=== PATIENT | male | born 1965 | race Hispanic/Latino ===

== ENCOUNTER 2017-08-29 01:29 | Inpatient (IN) | payer MEDICAID, OTHER ==
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
[2017-08-29] MEDS ORDERED: Morphine 4 MG/ML VIAL ONE (01:43)
[2017-08-29] MEDS ORDERED: Lactated Ringer's 1,000 ML IV ONE ×3 (01:53→21:09)
[2017-08-29] MEDS ORDERED: Lactated Ringer's 1,000 ML ONE (02:02)
[2017-08-29 02:07] LABS: BASO # 0.1 K/uL (0.0-0.2); BASO % 1.9 % (0.0-2.0); EOS # 0.1 K/uL (0.0-0.7); EOS % 1.5 % (0.0-4.0); HEMATOCRIT 42.4 % (35.0-51.0); LYMPH # 2.8 K/uL (1.0-4.3); LYMPH % 41.5 % (20.0-40.0); MEAN CELL VOLUME 85.9 fL (80.0-94.0); MEAN CORPUSCULAR HEMOGLOBIN 28.4 pg (27.0-31.0); MEAN CORPUSCULAR HGB CONC 33.1 g/dL (33.0-37.0); MEAN PLATELET VOLUME 9.4 fL (7.2-11.7); MONO # 0.4 K/uL (0.0-0.8); MONO % 6.3 % (0.0-10.0); RED CELL DISTRIBUTION WIDTH 13.4 % (11.5-14.5); WHITE BLOOD COUNT 6.7 K/uL (4.8-10.8)
[2017-08-29] MEDS ORDERED: ceFAZolin 1 gm FROZEN Premix 1 GM/50 ML ML IVPB ONE (02:35)
[2017-08-29] MEDS ORDERED: ceFAZolin IV 2 gm in Dextrose 2 GM/50 ML BAG IVPB STA (02:37)
[2017-08-29 02:41] LABS: BLOOD UREA NITROGEN 17 mg/dL (9-20); CARBON DIOXIDE 26 mmol/L (22-30); CHLORIDE 101 mmol/L (98-107); GFR AFRICAN-AMERICAN > 60; GLUCOSE,RANDOM 102 mg/dL (75-110); POTASSIUM 3.7 mmol/L (3.6-5.2); SODIUM 137 mmol/L (132-148)
[2017-08-29] MEDS ORDERED: Absorbable Gelatin Sponge Size 12-7 ONE (03:39)
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
[2017-08-29] MEDS: Vancomycin 1 gm/NS 200 ml 1 GM/200 ML BAG IVPB SCH ×2 (07:06→19:25)
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
[2017-08-29] MEDS ORDERED: ceFAZolin IV 2 gm in Dextrose 2 GM/50 ML BAG IVPB SCH ×2 (08:30→09:00)
--- NOTE | 2017-08-29 09:43 | RAD ---
PROCEDURE: Radiographs of the right tibia and fibula. HISTORY: fall COMPARISON: None available. TECHNIQUE: Frontal and lateral views obtained. FINDINGS: BONES: Comminuted tibial metaphyseal to epiphyseal fracture involving the plateau medial tibial plateau angulated inferiorly and medially. Comminuted fibular head fracture. Mottled pretibial soft tissue changes. Suprapatellar joint effusion JOINT SPACES: Unremarkable. OTHER FINDINGS: None. IMPRESSION: Multiple comminuted fractures -tibia fibula -tibial plateau intraarticular extension. Medial tibial plateau large fracture fragment has its articular surface diagonally angulated from a right lateral to a inferior medial orientation
[2017-08-29] MEDS: cefTRIAXone IV 1 gm in Dextros 50 ML IVPB SCH (09:44)
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
[2017-08-29] MEDS ORDERED: Bacitracin 150,000 UNIT in Sodium Chloride 0.9% Irrig 3,000 ML IR SCH (18:00)
[2017-08-29] MEDS ORDERED: Propofol 10 mg/ml Inj (20 ML) ONE (19:00)
[2017-08-29] MEDS ORDERED: Midazolam 2 MG/2 ML VIAL ONE (19:01)
[2017-08-29] MEDS ORDERED: ceFAZolin IV 2 gm in Dextrose 2 GM/50 ML BAG IVPB ONE (19:11)
[2017-08-29] MEDS ORDERED: Absorbable Gelatin Sponge Size 100 ONE (19:58)
[2017-08-29] MEDS ORDERED: Thrombin Topical 20,000 Intl Units Spray Kit TOP ONE (19:58)
[2017-08-29] MEDS ORDERED: Neostigmine Methylsulfate 3mg/3ml Syringe IV ONE (20:37)
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
[2017-08-29] MEDS ORDERED: Vancomycin 1 gm/NS 200 ml 200 ML IVPB SCH (21:00)
[2017-08-29] MEDS: HYDROmorphone 0.5 mg/0.5 ml ISec IVP PRN ×3 (21:23→21:58)
--- NOTE | 2017-08-30 07:28 | CP.PCM.PN ---
<Venessa Urena - Last Filed: 08/30/17 11:43> Subjective - Date & Time of Evaluation Date of Evaluation: 08/30/17 Time of Evaluation: 07:28 - Subjective Subjective: Medicine Progress Note- Dr. Milton Patient was seen and examined at bedside. Patient was in no acute distress. Patient is s/p I&D and application of external fixator of the right tibia, POD# 1. Patient reports he had pain in his right leg this morning, but pain medication helped. Patient has no other complaints. Patient denies having chest pain, abdominal pain, nausea, vomiting, fevers, headaches, and shortness of breath. Objective - Vital Signs/Intake and Output Vital Signs (last 24 hours): Temp Pulse Resp BP Pulse Ox 98.4 F 60 20 105/50 L 97 08/29/17 23:20 08/29/17 23:20 08/29/17 23:20 08/29/17 23:20 08/29/17 23:20 Intake and Output: 08/30/17 08/30/17 06:59 18:59 Intake Total 100 Balance 100 - Medications Medications: Current Medications Enoxaparin Sodium (Lovenox) 40 mg SC DAILY [facility] Hydromorphone HCl (Dilaudid) 1 mg IVP Q4H PRN PRN Reason: Pain, severe (8-10) Ceftriaxone Sodium (Rocephin Iv 1 Gm Duplex) 50 mls @ 100 mls/hr IVPB DAILY [facility] Last Admin: 08/29/17 09:44 Dose: 100 mls/hr Vancomycin HCl 1 gm/ Sodium (Chloride) 250 mls @ 166.6 mls/hr IVPB Q12H [facility] Last Admin: 08/30/17 06:31 Dose: 166.6 mls/hr Ondansetron HCl (Zofran Inj) 4 mg IVP Q6H PRN PRN Reason: Nausea/Vomiting Pantoprazole Sodium (Protonix Inj) 40 mg IVP DAILY [facility] Last Admin: 08/29/17 09:44 Dose: 40 mg - Labs Labs: 08/29/17 02:02 08/29/17 02:02 PT 11.2 SECONDS (9.7-12.2) 08/29/17 02:02 INR 1.0 08/29/17 02:02 APTT 33 SECONDS (21-34) 08/29/17 02:02 - Additional Findings Additional findings: - Constitutional Appears: No Acute Distress - Head Exam Head Exam: ATRAUMATIC, NORMAL INSPECTION - Eye Exam Eye Exam: EOMI, Normal appearance - ENT Exam ENT Exam: Mucous Membranes Moist - Respiratory Exam Respiratory Exam: Clear to Ausculation Bilateral, NORMAL BREATHING PATTERN. absent: Rales, Rhonchi, Wheezes, Respiratory Distress - Cardiovascular Exam Cardiovascular Exam: REGULAR RHYTHM, +S1, +S2 - GI/Abdominal Exam GI & Abdominal Exam: Soft, Normal Bowel Sounds. absent: Distended, Firm, Guarding, Tenderness - Extremities Exam Additional comments: Right LE: cast and external fixator present on right LE; clean, dry, intact; Patient able to move toes; sensation intact; - Neurological Exam Neurological Exam: Alert, Awake, Oriented x3 - Psychiatric Exam Psychiatric exam: Normal Affect, Normal Mood - Skin Skin Exam: Dry, Pallor, Warm Assessment and Plan (1) Fracture, tibia and fibula, proximal Status: Acute (2) Prophylactic measure Status: Acute - Assessment and Plan (Free Text) Plan: Assessment and Plan (1) Fracture, tibia and fibula, proximal Assessment & Plan: * Tibia/Fibula Xray: Multiple comminuted fractures -tibia fibula -tibial plateau intraarticular extension. Medial tibial plateau large fracture fragment has its articular surface diagonally angulated from a right lateral to a inferior medial orientation * Lower extremity CT: Comminuted fracture proximal tibia with extension to lateral tibial plateau, posterior interspinous region, focal depression anterior lateral portion of the plateau of up to 1.8 cm. Comminuted fracture proximal fibula. Moderate pneumo-hemarthrosis, soft tissue edema and emphysema. * Continue Ceftriaxone 1gm q24h * Continue Vancomycin 1gm q12h * Continue Tylenol and/or Dilaudid as needed for pain control * Continue Zofran 4mg IVP q6h prn * Orthopedics consulted, Dr. Troncoso, help appreciated * As per Orthopedics, patient should continue 7-10 days of antibiotics; ID consulted- Dr. Stephenson, help appreciated * Wound gram stain, fungal cx: pending * Patient will need second in-house operation- scheduled date pending. * Patient s/p I&D and application of external fixator on right tibia, POD#1. Status: Acute (2) Prophylactic measure Assessment & Plan: DVT: Lovenox 40mg SC daily GI: Protonix 40mg IVP daily Incentive Spirometer Vegan diet Status: Acute <KarinePeter H - Last Filed: 08/30/17 15:11> Objective - Vital Signs/Intake and Output Vital Signs (last 24 hours): Temp Pulse Resp BP Pulse Ox 98 F 62 20 126/71 98 08/30/17 08:26 08/30/17 08:26 08/30/17 08:26 08/30/17 08:26 08/30/17 08:26 Intake and Output: 08/30/17 08/30/17 06:59 18:59 Intake Total 100 Balance 100 - Medications Medications: Current Medications Acetaminophen (Tylenol 325mg Tab) 975 mg PO Q6 [facility] Last Admin: 08/30/17 12:27 Dose: 975 mg Cyclobenzaprine HCl (Flexeril) 5 mg PO Q24H [facility] Docusate Sodium (Colace) 100 mg PO BID [facility] Enoxaparin Sodium (Lovenox) 40 mg SC DAILY [facility] Last Admin: 08/30/17 09:23 Dose: 40 mg Hydromorphone HCl (Dilaudid) 1 mg IVP Q4H PRN PRN Reason: Pain, severe (8-10) Last Admin: 08/30/17 12:40 Dose: 1 mg Ceftriaxone Sodium (Rocephin Iv 1 Gm Duplex) 50 mls @ 100 mls/hr IVPB DAILY [facility] Last Admin: 08/30/17 09:23 Dose: 100 mls/hr Vancomycin HCl 1 gm/ Sodium (Chloride) 250 mls @ 166.6 mls/hr IVPB Q12H [facility] Last Admin: 08/30/17 06:31 Dose: 166.6 mls/hr Ondansetron HCl (Zofran Inj) 4 mg IVP Q6H PRN PRN Reason: Nausea/Vomiting Oxycodone HCl (Oxycodone Immediate Release Tab) 10 mg PO Q6 PRN PRN Reason: Pain, moderate (4-7) Pantoprazole Sodium (Protonix Inj) 40 mg IVP DAILY [facility] Last Admin: 08/30/17 09:24 Dose: 40 mg - Labs Labs: 08/30/17 08:51 08/30/17 08:51 PT 11.2 SECONDS (9.7-12.2) 08/29/17 02:02 INR 1.0 08/29/17 02:02 APTT 33 SECONDS (21-34) 08/29/17 02:02 Attending/Attestation - Attestation I have personally seen and examined this patient.: Yes I have fully participated in the care of the patient.: Yes I have reviewed all pertinent clinical information, including history, physical exam and plan: Yes Notes (Text): Medical attending: Patient was seen and examined by me, agrees the above note by medical assistant cardiology. The patient was not under any acute distress when we saw him. He did get some pain medication earlier and he reported that this did help significantly. Last night he had his first orthopedic intervention for his open fracture of the proximal and distal right tibia/fibula. He's currently on IV antibiotics for the next several days and from what I understand, the patient at some point will then be scheduled for an ORIF. Thank you very much, Sampson Milton
[2017-08-30] MEDS: HYDROmorphone 1 mg/ml ISec IVP PRN ×4 (08:38→21:47)
[2017-08-30 09:02] LABS: BASO # 0.1 K/uL (0.0-0.2); BASO % 0.4 % (0.0-2.0); EOS % 0.1 % (0.0-4.0); HEMATOCRIT 32.6 % (35.0-51.0); LYMPH # 1.1 K/uL (1.0-4.3); LYMPH % 8.8 % (20.0-40.0); MEAN CELL VOLUME 86.3 fL (80.0-94.0); MEAN CORPUSCULAR HEMOGLOBIN 28.2 pg (27.0-31.0); MEAN CORPUSCULAR HGB CONC 32.7 g/dL (33.0-37.0); MEAN PLATELET VOLUME 9.7 fL (7.2-11.7); MONO # 1.1 K/uL (0.0-0.8); MONO % 8.4 % (0.0-10.0); PLATELET COUNT 132 K/uL (130-400); RED CELL DISTRIBUTION WIDTH 13.5 % (11.5-14.5)
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
[2017-08-30 09:19] LABS: ALB/GLOB RATIO 1.5 (1.0-2.1); ALKALINE PHOSPHATASE 54 U/L (38-126); ALT/SGPT 39 U/L (21-72); AST/SGOT 34 U/L (17-59); BILIRUBIN,TOTAL 2.6 mg/dL (0.2-1.3); BLOOD UREA NITROGEN 14 mg/dL (9-20); CALCIUM 7.5 mg/dl (8.6-10.4); CARBON DIOXIDE 32 mmol/L (22-30); CHLORIDE 97 mmol/L (98-107); GFR AFRICAN-AMERICAN > 60; GLUCOSE,RANDOM 103 mg/dL (75-110); POTASSIUM 3.9 mmol/L (3.6-5.2); SODIUM 134 mmol/L (132-148); TOTAL PROTEIN 5.6 g/dL (6.3-8.3)
[2017-08-30 09:20] LABS: WHITE BLOOD COUNT 12.6 K/uL (4.8-10.8)
[2017-08-30] MEDS: cefTRIAXone IV 1 gm in Dextros 50 ML IVPB SCH (09:23)
[2017-08-30] MEDS: Enoxaparin 40 mg Syringe SC SCH (09:23)
--- NOTE | 2017-08-30 09:29 | RAD ---
PROCEDURE: Intraoperative fluoroscopy HISTORY: FX EX-FIX PLACEMENT COMPARISON: Not available TECHNIQUE: Intraoperative fluoroscopy was provided for external fixation about proximal tibial and fibular fracture. Total time of fluoroscopy was 19.7 seconds. FINDINGS: Multiple fluoroscopic spot films are submitted. Films are on file for review. IMPRESSION: Fluoroscopy provided.
[2017-08-30 09:54] LABS: NEUTROPHIL 79 % (50-75); REACTIVE LYMPHOCYTES 4 % (0-0); TOTAL CELLS COUNTED 100
[2017-08-30 09:55] LABS: LARGE PLATELETS PRESENT
--- NOTE | 2017-08-30 12:13 | CP.PCM.PN ---
Subjective - Date & Time of Evaluation Date of Evaluation: 08/30/17 Time of Evaluation: 12:09 - Subjective Subjective: Patient states he is still having a lot of pain in his knee. The injection helps but it is wearing off. He had severe pain during PT. Denies CP/SOB/ dizziness/numbness/tingling. Objective - Vital Signs/Intake and Output Vital Signs (last 24 hours): Temp Pulse Resp BP Pulse Ox 98 F 62 20 126/71 98 08/30/17 08:26 08/30/17 08:26 08/30/17 08:26 08/30/17 08:26 08/30/17 08:26 Intake and Output: 08/30/17 08/30/17 06:59 18:59 Intake Total 100 Balance 100 - Medications Medications: Current Medications Acetaminophen (Tylenol 325mg Tab) 975 mg PO Q6 [facility] Cyclobenzaprine HCl (Flexeril) 5 mg PO Q24H [facility] Docusate Sodium (Colace) 100 mg PO BID [facility] Enoxaparin Sodium (Lovenox) 40 mg SC DAILY [facility] Last Admin: 08/30/17 09:23 Dose: 40 mg Hydromorphone HCl (Dilaudid) 1 mg IVP Q4H PRN PRN Reason: Pain, severe (8-10) Last Admin: 08/30/17 08:38 Dose: 1 mg Ceftriaxone Sodium (Rocephin Iv 1 Gm Duplex) 50 mls @ 100 mls/hr IVPB DAILY [facility] Last Admin: 08/30/17 09:23 Dose: 100 mls/hr Vancomycin HCl 1 gm/ Sodium (Chloride) 250 mls @ 166.6 mls/hr IVPB Q12H [facility] Last Admin: 08/30/17 06:31 Dose: 166.6 mls/hr Ondansetron HCl (Zofran Inj) 4 mg IVP Q6H PRN PRN Reason: Nausea/Vomiting Oxycodone HCl (Oxycodone Immediate Release Tab) 10 mg PO Q6 PRN PRN Reason: Pain, moderate (4-7) Pantoprazole Sodium (Protonix Inj) 40 mg IVP DAILY [facility] Last Admin: 08/30/17 09:24 Dose: 40 mg - Labs Labs: 08/30/17 08:51 08/30/17 08:51 PT 11.2 SECONDS (9.7-12.2) 08/29/17 02:02 INR 1.0 08/29/17 02:02 APTT 33 SECONDS (21-34) 08/29/17 02:02 - Extremities Exam Additional comments: RLE: +ROM ankle/toes, sensation intact, compartments swollen but not tense, no pain with passive ROM toes, +DP/PT pulses, left calf soft NT neg homans Assessment and Plan (1) Type I or II open fracture of proximal end of right tibia and fibula Assessment & Plan: POD#1 s/p I&D and ex-fix application -pain medication adjusted -elevation/ice -per Dr. Troncoso, recommend ID consultation, suggest 7-10 days IV antibiotics or as per ID -will await swelling to improve and then schedule ORIF at that time -recommend inpatient at this time, wound checks, IV antibiotics -VTE proph -d/w Dr. Troncoso agrees with above Status: Acute
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
[2017-08-30] MEDS ORDERED: Vancomycin 1 GM in Dextrose 5% In Water 250 ML IVPB SCH (21:00)
[2017-08-31] MEDS: HYDROmorphone 1 mg/ml ISec IVP PRN ×3 (01:44→12:17)
[2017-08-31 07:00] LABS: BASO # 0.1 K/uL (0.0-0.2); BASO % 0.7 % (0.0-2.0); EOS % 0.3 % (0.0-4.0); HEMATOCRIT 30.7 % (35.0-51.0); LYMPH # 1.5 K/uL (1.0-4.3); LYMPH % 14.8 % (20.0-40.0); MEAN CELL VOLUME 85.2 fL (80.0-94.0); MEAN CORPUSCULAR HEMOGLOBIN 28.9 pg (27.0-31.0); MEAN CORPUSCULAR HGB CONC 33.9 g/dL (33.0-37.0); MONO # 1.1 K/uL (0.0-0.8); MONO % 10.5 % (0.0-10.0); RED CELL DISTRIBUTION WIDTH 13.3 % (11.5-14.5); WHITE BLOOD COUNT 10.1 K/uL (4.8-10.8)
--- NOTE | 2017-08-31 07:15 | CP.PCM.PN ---
Subjective - Date & Time of Evaluation Date of Evaluation: 08/31/17 Time of Evaluation: 07:12 - Subjective Subjective: Medicine Progress Note for Dr. Milton Patient was seen and examined at bedside in no acute distress. Patient reports having pain in his right leg earlier, but after requesting pain medications, it feels less painful. Patient reports he is gaining his appetite back. He states he is using the incentive spirometer regularly and using bands for strengthening. Patient denies having chest pain, shortness of breath, abdominal pain, nausea, vomiting, fevers, and headaches. Objective - Vital Signs/Intake and Output Vital Signs (last 24 hours): Temp Pulse Resp BP Pulse Ox 98.8 F 60 20 116/62 98 08/31/17 00:00 08/31/17 00:00 08/31/17 00:00 08/31/17 00:00 08/31/17 00:00 Intake and Output: 08/31/17 08/31/17 06:59 18:59 Intake Total 100 Balance 100 - Medications Medications: Current Medications Acetaminophen (Tylenol 325mg Tab) 975 mg PO Q6 [facility] Last Admin: 08/31/17 06:38 Dose: Not Given Cyclobenzaprine HCl (Flexeril) 5 mg PO Q24H [facility] Last Admin: 08/30/17 21:49 Dose: 5 mg Docusate Sodium (Colace) 100 mg PO BID [facility] Last Admin: 08/30/17 18:51 Dose: 100 mg Enoxaparin Sodium (Lovenox) 40 mg SC DAILY [facility] Last Admin: 08/30/17 09:23 Dose: 40 mg Hydromorphone HCl (Dilaudid) 1 mg IVP Q4H PRN PRN Reason: Pain, severe (8-10) Last Admin: 08/31/17 05:59 Dose: 1 mg Ceftriaxone Sodium (Rocephin Iv 1 Gm Duplex) 50 mls @ 100 mls/hr IVPB DAILY [facility] Last Admin: 08/30/17 09:23 Dose: 100 mls/hr Vancomycin HCl 1 gm/ Sodium (Chloride) 250 mls @ 166.6 mls/hr IVPB Q12H [facility] Last Admin: 08/31/17 06:42 Dose: 166.6 mls/hr Ondansetron HCl (Zofran Inj) 4 mg IVP Q6H PRN PRN Reason: Nausea/Vomiting Oxycodone HCl (Oxycodone Immediate Release Tab) 10 mg PO Q6 PRN PRN Reason: Pain, moderate (4-7) Pantoprazole Sodium (Protonix Inj) 40 mg IVP DAILY [facility] Last Admin: 08/30/17 09:24 Dose: 40 mg - Labs Labs: 08/31/17 06:49 08/30/17 08:51 PT 11.2 SECONDS (9.7-12.2) 08/29/17 02:02 INR 1.0 08/29/17 02:02 APTT 33 SECONDS (21-34) 08/29/17 02:02 - Additional Findings Additional findings: - Constitutional Appears: No Acute Distress - Head Exam Head Exam: ATRAUMATIC, NORMAL INSPECTION - Eye Exam Eye Exam: EOMI, Normal appearance - ENT Exam ENT Exam: Mucous Membranes Moist - Respiratory Exam Respiratory Exam: Clear to Ausculation Bilateral, NORMAL BREATHING PATTERN. absent: Rales, Rhonchi, Wheezes, Respiratory Distress - Cardiovascular Exam Cardiovascular Exam: REGULAR RHYTHM, +S1, +S2 - GI/Abdominal Exam GI & Abdominal Exam: Soft, Normal Bowel Sounds. absent: Distended, Firm, Guarding, Tenderness - Extremities Exam Additional comments: Right LE: cast and external fixator present on right LE; clean, dry, intact; Patient able to move toes; sensation intact; - Neurological Exam Neurological Exam: Alert, Awake, Oriented x3 - Psychiatric Exam Psychiatric exam: Normal Affect, Normal Mood - Skin Skin Exam: Dry, Pallor, Warm Assessment and Plan (1) Fracture, tibia and fibula, proximal Status: Acute (2) Prophylactic measure Status: Acute - Assessment and Plan (Free Text) Plan: (1) Fracture, tibia and fibula, proximal Assessment & Plan: * Tibia/Fibula Xray: Multiple comminuted fractures -tibia fibula -tibial plateau intraarticular extension. Medial tibial plateau large fracture fragment has its articular surface diagonally angulated from a right lateral to a inferior medial orientation * Lower extremity CT: Comminuted fracture proximal tibia with extension to lateral tibial plateau, posterior interspinous region, focal depression anterior lateral portion of the plateau of up to 1.8 cm. Comminuted fracture proximal fibula. Moderate pneumo-hemarthrosis, soft tissue edema and emphysema. * Continue Ceftriaxone 1gm q24h * Continue Vancomycin 1gm q12h * Continue Tylenol and/or Dilaudid as needed for pain control * Continue Zofran 4mg IVP q6h prn * Orthopedics consulted, Dr. Troncoso, help appreciated * As per Orthopedics, patient should continue 7-10 days of antibiotics; ID consulted- Dr. Stephenson, help appreciated * Wound gram stain, fungal cx: no growth * Patient will need second in-house operation- scheduled date pending. * ID consulted, Dr. Stephenson, help appreciated * Patient s/p I&D and application of external fixator on right tibia (on 08/29) , POD#2. Status: Acute (2) Prophylactic measure Assessment & Plan: DVT: Lovenox 40mg SC daily GI: Protonix 40mg IVP daily Incentive Spirometer OT Vegan diet Status: Acute
[2017-08-31 07:47] LABS: ALB/GLOB RATIO 1.4 (1.0-2.1); ALKALINE PHOSPHATASE 50 U/L (38-126); ALT/SGPT 33 U/L (21-72); AST/SGOT 34 U/L (17-59); BILIRUBIN,TOTAL 1.9 mg/dL (0.2-1.3); BLOOD UREA NITROGEN 11 mg/dL (9-20); CALCIUM 7.7 mg/dl (8.6-10.4); CARBON DIOXIDE 32 mmol/L (22-30); CHLORIDE 97 mmol/L (98-107); GFR AFRICAN-AMERICAN > 60; GLUCOSE,RANDOM 95 mg/dL (75-110); POTASSIUM 3.7 mmol/L (3.6-5.2); SODIUM 137 mmol/L (132-148); TOTAL PROTEIN 5.6 g/dL (6.3-8.3)
[2017-08-31 08:13] LABS: VITAMIN D 25 OH TOTAL 22.4 NG/ML (30.0-100.0)
[2017-08-31] MEDS: oxyCODONE 10 mg Immediate Release Tab PO PRN ×2 (08:54→15:04)
--- NOTE | 2017-08-31 09:13 | CP.PCM.PN ---
Subjective - Date & Time of Evaluation Date of Evaluation: 08/31/17 Time of Evaluation: 09:11 - Subjective Subjective: Patient states his pain is a little better today. He says the injection is wearing off and is requesting more medication now. Denies CP/SOB/dizziness. Objective - Vital Signs/Intake and Output Vital Signs (last 24 hours): Temp Pulse Resp BP Pulse Ox 98.3 F 58 L 20 117/65 98 08/31/17 08:00 08/31/17 08:00 08/31/17 08:00 08/31/17 08:00 08/31/17 08:00 Intake and Output: 08/31/17 08/31/17 06:59 18:59 Intake Total 100 200 Balance 100 200 - Medications Medications: Current Medications Acetaminophen (Tylenol 325mg Tab) 975 mg PO Q6 [facility] Last Admin: 08/31/17 06:38 Dose: Not Given Cyclobenzaprine HCl (Flexeril) 5 mg PO Q24H [facility] Last Admin: 08/30/17 21:49 Dose: 5 mg Docusate Sodium (Colace) 100 mg PO BID [facility] Last Admin: 08/30/17 18:51 Dose: 100 mg Enoxaparin Sodium (Lovenox) 40 mg SC DAILY [facility] Last Admin: 08/30/17 09:23 Dose: 40 mg Hydromorphone HCl (Dilaudid) 1 mg IVP Q4H PRN PRN Reason: Pain, severe (8-10) Last Admin: 08/31/17 05:59 Dose: 1 mg Ceftriaxone Sodium (Rocephin Iv 1 Gm Duplex) 50 mls @ 100 mls/hr IVPB DAILY [facility] Last Admin: 08/30/17 09:23 Dose: 100 mls/hr Vancomycin HCl 1 gm/ Sodium (Chloride) 250 mls @ 166.6 mls/hr IVPB Q12H [facility] Last Admin: 08/31/17 06:42 Dose: 166.6 mls/hr Ondansetron HCl (Zofran Inj) 4 mg IVP Q6H PRN PRN Reason: Nausea/Vomiting Oxycodone HCl (Oxycodone Immediate Release Tab) 10 mg PO Q6 PRN PRN Reason: Pain, moderate (4-7) Last Admin: 08/31/17 08:54 Dose: 10 mg Pantoprazole Sodium (Protonix Inj) 40 mg IVP DAILY [facility] Last Admin: 08/30/17 09:24 Dose: 40 mg - Labs Labs: 08/31/17 06:49 08/31/17 06:49 PT 11.2 SECONDS (9.7-12.2) 08/29/17 02:02 INR 1.0 08/29/17 02:02 APTT 33 SECONDS (21-34) 08/29/17 02:02 - Extremities Exam Additional comments: patient in NAD. Ice on right leg. +ROM ankle/toes wihtout pain, sensation intact , calves soft NT neg homans +DP/PT pulses, sensation intact. no increased drainage visible on dressing. Assessment and Plan (1) Type I or II open fracture of proximal end of right tibia and fibula Assessment & Plan: ID consultation appreciated, cont IV abx awaiting cultures cont IV abx, elevation, PT, VTE proph if patient has coverage, could be transferred to rehab for completion of abx and awaiting decrease in swelling prior to definitive surgery cont pain medication d/w Jensen ca, agrees with above Status: Acute (2) Open fracture of right tibial plateau Status: Acute
[2017-08-31] MEDS: Enoxaparin 40 mg Syringe SC SCH (10:47)
[2017-08-31] MEDS: cefTRIAXone IV 1 gm in Dextros 50 ML IVPB SCH (10:51)
[2017-08-31] MEDS: HYDROmorphone 0.5 mg/0.5 ml ISec IVP PRN ×2 (17:38→21:57)
--- NOTE | 2017-08-31 18:43 | CP.PCM.PN ---
Subjective - Date & Time of Evaluation Date of Evaluation: 08/31/17 Time of Evaluation: 09:00 - Subjective Subjective: afebrile IV antibiotics reordered c/o pain Objective - Vital Signs/Intake and Output Vital Signs (last 24 hours): Temp Pulse Resp BP Pulse Ox 98 F 70 20 118/57 L 98 08/31/17 15:57 08/31/17 15:57 08/31/17 15:57 08/31/17 15:57 08/31/17 15:57 Intake and Output: 08/31/17 08/31/17 06:59 18:59 Intake Total 100 200 Balance 100 200 - Medications Medications: Current Medications Acetaminophen (Tylenol 325mg Tab) 975 mg PO Q6 [facility] Last Admin: 08/31/17 13:49 Dose: Not Given Cyclobenzaprine HCl (Flexeril) 5 mg PO Q24H [facility] Last Admin: 08/30/17 21:49 Dose: 5 mg Docusate Sodium (Colace) 100 mg PO BID [facility] Last Admin: 08/31/17 10:44 Dose: 100 mg Enoxaparin Sodium (Lovenox) 40 mg SC DAILY [facility] Last Admin: 08/31/17 10:47 Dose: 40 mg Hydromorphone HCl (Dilaudid) 1 mg IVP Q4H PRN PRN Reason: Pain, severe (8-10) Last Admin: 08/31/17 17:38 Dose: 1 mg Ceftriaxone Sodium (Rocephin Iv 1 Gm Duplex) 50 mls @ 100 mls/hr IVPB DAILY [facility] Last Admin: 08/31/17 10:51 Dose: 100 mls/hr Vancomycin HCl 1 gm/ Sodium (Chloride) 250 mls @ 166.6 mls/hr IVPB Q12H [facility] Last Admin: 08/31/17 18:34 Dose: 166.6 mls/hr Ondansetron HCl (Zofran Inj) 4 mg IVP Q6H PRN PRN Reason: Nausea/Vomiting Oxycodone HCl (Oxycodone Immediate Release Tab) 10 mg PO Q6 PRN PRN Reason: Pain, moderate (4-7) Last Admin: 08/31/17 15:04 Dose: 10 mg Pantoprazole Sodium (Protonix Inj) 40 mg IVP DAILY [facility] Last Admin: 08/31/17 10:47 Dose: 40 mg - Labs Labs: 08/31/17 06:49 08/31/17 06:49 PT 11.2 SECONDS (9.7-12.2) 08/29/17 02:02 INR 1.0 08/29/17 02:02 APTT 33 SECONDS (21-34) 08/29/17 02:02 - Constitutional Appears: Non-toxic, Chronically Ill - Head Exam Head Exam: NORMOCEPHALIC - Eye Exam Eye Exam: PERRL - ENT Exam ENT Exam: Mucous Membranes Dry - Neck Exam Neck Exam: absent: Lymphadenopathy - Respiratory Exam Respiratory Exam: Decreased Breath Sounds - Cardiovascular Exam Cardiovascular Exam: REGULAR RHYTHM - GI/Abdominal Exam GI & Abdominal Exam: Distended, Soft - Rectal Exam Rectal Exam: Deferred - Exam Exam: NORMAL INSPECTION - Extremities Exam Extremities Exam: absent: Pedal Edema - Back Exam Back Exam: absent: CVA tenderness (L), CVA tenderness (R) Assessment and Plan (1) Fracture, tibia and fibula, proximal Status: Acute (2) Type I or II open fracture of proximal end of right tibia and fibula Status: Acute
[2017-09-01] MEDS: HYDROmorphone 0.5 mg/0.5 ml ISec IVP PRN ×2 (02:50→10:32)
[2017-09-01] MEDS ORDERED: Ergocalciferol 50,000 Intl Units Cap PO SCH (08:00)
[2017-09-01 08:15] LABS: BASO % 0.6 % (0.0-2.0); EOS % 0.4 % (0.0-4.0); LYMPH # 0.9 K/uL (1.0-4.3); LYMPH % 10.6 % (20.0-40.0); MEAN CELL VOLUME 84.8 fL (80.0-94.0); MEAN CORPUSCULAR HEMOGLOBIN 28.6 pg (27.0-31.0); MEAN CORPUSCULAR HGB CONC 33.7 g/dL (33.0-37.0); MEAN PLATELET VOLUME 9.9 fL (7.2-11.7); RED CELL DISTRIBUTION WIDTH 13.1 % (11.5-14.5); WHITE BLOOD COUNT 8.5 K/uL (4.8-10.8)
[2017-09-01 08:48] LABS: ALKALINE PHOSPHATASE 46 U/L (38-126); ALT/SGPT 32 U/L (21-72); AST/SGOT 28 U/L (17-59); BILIRUBIN,TOTAL 1.1 mg/dL (0.2-1.3); BLOOD UREA NITROGEN 9 mg/dL (9-20); CALCIUM 7.7 mg/dl (8.6-10.4); CARBON DIOXIDE 35 mmol/L (22-30); CHLORIDE 98 mmol/L (98-107); GFR AFRICAN-AMERICAN > 60; GLUCOSE,RANDOM 117 mg/dL (75-110); POTASSIUM 3.8 mmol/L (3.6-5.2); SODIUM 137 mmol/L (132-148); TOTAL PROTEIN 5.7 g/dL (6.3-8.3)
[2017-09-01 08:50] LABS: ALB/GLOB RATIO 1.2 (1.0-2.1)
--- NOTE | 2017-09-01 09:31 | CP.PCM.PN ---
<Venessa Urena - Last Filed: 09/01/17 11:10> Subjective - Date & Time of Evaluation Date of Evaluation: 09/01/17 Time of Evaluation: 09:31 - Subjective Subjective: Medicine Progress Note-Dr. Milton Patient was seen and examined at bedside in no acute distress. Patient reports having pain in his right leg, but the pain medications still help. Patient reports he is using the incentive spirometer regularly. He states he sometimes feels hot and cold, but not sure if hes having fevers. Patient denies having chest pain, shortness of breath, abdominal pain, nausea, vomiting, and headaches. Objective - Vital Signs/Intake and Output Vital Signs (last 24 hours): Temp Pulse Resp BP Pulse Ox 98.1 F 69 20 116/74 95 09/01/17 07:10 09/01/17 07:10 09/01/17 07:10 09/01/17 07:10 09/01/17 07:10 Intake and Output: 09/01/17 09/01/17 06:59 18:59 Intake Total 600 150 Output Total 900 1200 Balance -300 -1050 - Medications Medications: Current Medications Acetaminophen (Tylenol 325mg Tab) 975 mg PO Q6 [facility] Last Admin: 09/01/17 06:53 Dose: 975 mg Cyclobenzaprine HCl (Flexeril) 5 mg PO Q24H [facility] Last Admin: 08/31/17 21:57 Dose: 5 mg Docusate Sodium (Colace) 100 mg PO BID [facility] Last Admin: 08/31/17 18:45 Dose: 100 mg Enoxaparin Sodium (Lovenox) 40 mg SC DAILY [facility] Last Admin: 08/31/17 10:47 Dose: 40 mg Ergocalciferol (Drisdol 50,000 Intl Units Cap) 1 cap PO Q7D [facility] Last Admin: 09/01/17 08:41 Dose: 1 cap Hydromorphone HCl (Dilaudid) 1 mg IVP Q4H PRN PRN Reason: Pain, severe (8-10) Last Admin: 09/01/17 02:50 Dose: 1 mg Ceftriaxone Sodium (Rocephin Iv 1 Gm Duplex) 50 mls @ 100 mls/hr IVPB DAILY [facility] Last Admin: 08/31/17 10:51 Dose: 100 mls/hr Vancomycin HCl 1 gm/ Sodium (Chloride) 250 mls @ 166.6 mls/hr IVPB Q12H [facility] Last Admin: 09/01/17 06:52 Dose: 166.6 mls/hr Ondansetron HCl (Zofran Inj) 4 mg IVP Q6H PRN PRN Reason: Nausea/Vomiting Oxycodone HCl (Oxycodone Immediate Release Tab) 10 mg PO Q6 PRN PRN Reason: Pain, moderate (4-7) Last Admin: 08/31/17 15:04 Dose: 10 mg Pantoprazole Sodium (Protonix Inj) 40 mg IVP DAILY [facility] Last Admin: 08/31/17 10:47 Dose: 40 mg - Labs Labs: 09/01/17 08:01 09/01/17 08:01 PT 11.2 SECONDS (9.7-12.2) 08/29/17 02:02 INR 1.0 08/29/17 02:02 APTT 33 SECONDS (21-34) 08/29/17 02:02 - Additional Findings Additional findings: - Constitutional Appears: No Acute Distress - Head Exam Head Exam: ATRAUMATIC, NORMAL INSPECTION - Eye Exam Eye Exam: EOMI, Normal appearance - ENT Exam ENT Exam: Mucous Membranes Moist - Respiratory Exam Respiratory Exam: Clear to Ausculation Bilateral, NORMAL BREATHING PATTERN. absent: Rales, Rhonchi, Wheezes, Respiratory Distress - Cardiovascular Exam Cardiovascular Exam: REGULAR RHYTHM, +S1, +S2 - GI/Abdominal Exam GI & Abdominal Exam: Soft, Normal Bowel Sounds. absent: Distended, Firm, Guarding, Tenderness - Extremities Exam Additional comments: Right LE: cast and external fixator present on right LE; clean, dry, intact; Patient able to move toes; sensation intact; - Neurological Exam Neurological Exam: Alert, Awake, Oriented x3 - Psychiatric Exam Psychiatric exam: Normal Affect, Normal Mood - Skin Skin Exam: Dry, Pallor, Warm Assessment and Plan (1) Fracture, tibia and fibula, proximal Status: Acute (2) Prophylactic measure Status: Acute - Assessment and Plan (Free Text) Plan: (1) Fracture, tibia and fibula, proximal Assessment & Plan: * Tibia/Fibula Xray: Multiple comminuted fractures -tibia fibula -tibial plateau intraarticular extension. Medial tibial plateau large fracture fragment has its articular surface diagonally angulated from a right lateral to a inferior medial orientation * Lower extremity CT: Comminuted fracture proximal tibia with extension to lateral tibial plateau, posterior interspinous region, focal depression anterior lateral portion of the plateau of up to 1.8 cm. Comminuted fracture proximal fibula. Moderate pneumo-hemarthrosis, soft tissue edema and emphysema. * Continue Ceftriaxone 1gm q24h * Continue Vancomycin 1gm q12h * Continue Tylenol and/or Dilaudid as needed for pain control * Continue Zofran 4mg IVP q6h prn * Orthopedics consulted, Dr. Troncoso, help appreciated * As per Orthopedics, patient should continue 7-10 days of antibiotics; ID consulted- Dr. Stephenson, help appreciated * Wound gram stain, fungal cx: no growth * Patient will need second in-house operation- scheduled date pending. * ID consulted, Dr. Stephenson, help appreciated * Patient s/p I&D and application of external fixator on right tibia (on 08/29) , POD#3. * Continue IV antibiotics as per ID. * Patient does not have insurance, and therefore will not have placement in rehab. * Awaiting decrease in swelling to schedule next operation. Status: Acute (2) Prophylactic measure Assessment & Plan: DVT: Lovenox 40mg SC daily GI: Protonix 40mg IVP daily Incentive Spirometer OT Vegan diet Status: Acute <Sampson Milton H - Last Filed: 09/01/17 16:22> Objective - Vital Signs/Intake and Output Vital Signs (last 24 hours): Temp Pulse Resp BP Pulse Ox 98.1 F 69 20 116/74 95 09/01/17 07:10 09/01/17 07:10 09/01/17 07:10 09/01/17 07:10 09/01/17 07:10 Intake and Output: 09/01/17 09/01/17 06:59 18:59 Intake Total 600 480 Output Total 900 1200 Balance -300 -720 - Medications Medications: Current Medications Acetaminophen (Tylenol 325mg Tab) 975 mg PO Q6 [facility] Last Admin: 09/01/17 12:25 Dose: 975 mg Cyclobenzaprine HCl (Flexeril) 5 mg PO Q24H [facility] Last Admin: 08/31/17 21:57 Dose: 5 mg Docusate Sodium (Colace) 100 mg PO BID [facility] Last Admin: 09/01/17 10:00 Dose: 100 mg Enoxaparin Sodium (Lovenox) 40 mg SC DAILY [facility] Last Admin: 09/01/17 10:00 Dose: 40 mg Ergocalciferol (Drisdol 50,000 Intl Units Cap) 1 cap PO Q7D [facility] Last Admin: 09/01/17 08:41 Dose: 1 cap Hydromorphone HCl (Dilaudid) 1 mg IVP Q4H PRN PRN Reason: Pain, severe (8-10) Last Admin: 09/01/17 14:38 Dose: 1 mg Ceftriaxone Sodium (Rocephin Iv 1 Gm Duplex) 50 mls @ 100 mls/hr IVPB DAILY [facility] Last Admin: 09/01/17 10:00 Dose: 100 mls/hr Vancomycin HCl 1 gm/ Sodium (Chloride) 250 mls @ 166.6 mls/hr IVPB Q12H [facility] Last Admin: 09/01/17 06:52 Dose: 166.6 mls/hr Ondansetron HCl (Zofran Inj) 4 mg IVP Q6H PRN PRN Reason: Nausea/Vomiting Oxycodone HCl (Oxycodone Immediate Release Tab) 10 mg PO Q6 PRN PRN Reason: Pain, moderate (4-7) Last Admin: 08/31/17 15:04 Dose: 10 mg Pantoprazole Sodium (Protonix Inj) 40 mg IVP DAILY [facility] Last Admin: 09/01/17 09:59 Dose: 40 mg Saccharomyces Boulardii (Florastor) 250 mg PO DAILY [facility] Last Admin: 09/01/17 11:24 Dose: 250 mg - Labs Labs: 09/01/17 08:01 09/01/17 08:01 PT 11.2 SECONDS (9.7-12.2) 08/29/17 02:02 INR 1.0 08/29/17 02:02 APTT 33 SECONDS (21-34) 08/29/17 02:02 Attending/Attestation - Attestation I have personally seen and examined this patient.: Yes I have fully participated in the care of the patient.: Yes I have reviewed all pertinent clinical information, including history, physical exam and plan: Yes Notes (Text): 09/01/17 16:22 Medical attending: Patient was seen and examined by me, agrees the above note by medical practice assistant. Patient remains on IV antibiotics at this time, he reported nothing acute happened overnight. His pain is currently under control at this time. The patient reports that he is a vegan and this is why he has not been eating too much the hospital food. Patient's family came and saw him today. We asked the patient if he was okay if we told him what was going on he said he was okay with this. So as documented before he's currently with an external fixator at this time to the right leg/knee he still on IV antibiotics at this time until the swelling that's on his right knee/leg can decrease enough for further surgery to be done Thank you very much, Sampson Milton
[2017-09-01] MEDS: cefTRIAXone IV 1 gm in Dextros 50 ML IVPB SCH (10:00)
[2017-09-01] MEDS: Enoxaparin 40 mg Syringe SC SCH (10:00)
[2017-09-01] MEDS: Saccharomyces Boulardi 250 mg Cap PO SCH (11:24)
--- NOTE | 2017-09-01 12:51 | CP.PCM.PN ---
Subjective - Date & Time of Evaluation Date of Evaluation: 09/01/17 Time of Evaluation: 12:48 - Subjective Subjective: Patient states pain is more controlled. Denies numbness/tingling. Objective - Vital Signs/Intake and Output Vital Signs (last 24 hours): Temp Pulse Resp BP Pulse Ox 98.1 F 69 20 116/74 95 09/01/17 07:10 09/01/17 07:10 09/01/17 07:10 09/01/17 07:10 09/01/17 07:10 Intake and Output: 09/01/17 09/01/17 06:59 18:59 Intake Total 600 150 Output Total 900 1200 Balance -300 -1050 - Medications Medications: Current Medications Acetaminophen (Tylenol 325mg Tab) 975 mg PO Q6 [facility] Last Admin: 09/01/17 06:53 Dose: 975 mg Cyclobenzaprine HCl (Flexeril) 5 mg PO Q24H [facility] Last Admin: 08/31/17 21:57 Dose: 5 mg Docusate Sodium (Colace) 100 mg PO BID [facility] Last Admin: 09/01/17 10:00 Dose: 100 mg Enoxaparin Sodium (Lovenox) 40 mg SC DAILY [facility] Last Admin: 09/01/17 10:00 Dose: 40 mg Ergocalciferol (Drisdol 50,000 Intl Units Cap) 1 cap PO Q7D [facility] Last Admin: 09/01/17 08:41 Dose: 1 cap Hydromorphone HCl (Dilaudid) 1 mg IVP Q4H PRN PRN Reason: Pain, severe (8-10) Ceftriaxone Sodium (Rocephin Iv 1 Gm Duplex) 50 mls @ 100 mls/hr IVPB DAILY [facility] Last Admin: 09/01/17 10:00 Dose: 100 mls/hr Vancomycin HCl 1 gm/ Sodium (Chloride) 250 mls @ 166.6 mls/hr IVPB Q12H [facility] Last Admin: 09/01/17 06:52 Dose: 166.6 mls/hr Ondansetron HCl (Zofran Inj) 4 mg IVP Q6H PRN PRN Reason: Nausea/Vomiting Oxycodone HCl (Oxycodone Immediate Release Tab) 10 mg PO Q6 PRN PRN Reason: Pain, moderate (4-7) Last Admin: 08/31/17 15:04 Dose: 10 mg Pantoprazole Sodium (Protonix Inj) 40 mg IVP DAILY [facility] Last Admin: 09/01/17 09:59 Dose: 40 mg Saccharomyces Boulardii (Florastor) 250 mg PO DAILY [facility] - Labs Labs: 09/01/17 08:01 09/01/17 08:01 PT 11.2 SECONDS (9.7-12.2) 08/29/17 02:02 INR 1.0 08/29/17 02:02 APTT 33 SECONDS (21-34) 08/29/17 02:02 - Extremities Exam Additional comments: RLE: dressing changed. pin sites cleaned with peroxide. all sites clean/minimal drainage. medial leg abrasions, suspect small tension blisters. Xeroform applied. Open fracture site healing well. No erythema. Swelling improving. Ice/ elevation, encouraged AROM ankle/toes. +DP/PT pulses, compartments soft, no pain with PROM toes Assessment and Plan (1) Type I or II open fracture of proximal end of right tibia and fibula Assessment & Plan: IV antibiotics due to open fx and wound contamination prelim cultures negative cont abx and awaiting swelling to improve, plan for surgery in 7-10 days when swelling improves PT, NWB plan dressing change on monday, reinforce prn over weekend d/w Dr. Troncoso, agrees with above Status: Acute (2) Open fracture of right tibial plateau Status: Acute
[2017-09-01] MEDS: HYDROmorphone 1 mg/ml ISec IVP PRN ×2 (14:38→21:10)
--- NOTE | 2017-09-01 16:23 | CP.PCM.PN ---
Subjective - Date & Time of Evaluation Date of Evaluation: 09/01/17 Time of Evaluation: 09:00 - Subjective Subjective: no fever resting in bed pain controlled denies sob cough or chest pain Objective - Vital Signs/Intake and Output Vital Signs (last 24 hours): Temp Pulse Resp BP Pulse Ox 98.1 F 69 20 116/74 95 09/01/17 07:10 09/01/17 07:10 09/01/17 07:10 09/01/17 07:10 09/01/17 07:10 Intake and Output: 09/01/17 09/01/17 06:59 18:59 Intake Total 600 480 Output Total 900 1200 Balance -300 -720 - Medications Medications: Current Medications Acetaminophen (Tylenol 325mg Tab) 975 mg PO Q6 [facility] Last Admin: 09/01/17 12:25 Dose: 975 mg Cyclobenzaprine HCl (Flexeril) 5 mg PO Q24H [facility] Last Admin: 08/31/17 21:57 Dose: 5 mg Docusate Sodium (Colace) 100 mg PO BID [facility] Last Admin: 09/01/17 10:00 Dose: 100 mg Enoxaparin Sodium (Lovenox) 40 mg SC DAILY [facility] Last Admin: 09/01/17 10:00 Dose: 40 mg Ergocalciferol (Drisdol 50,000 Intl Units Cap) 1 cap PO Q7D [facility] Last Admin: 09/01/17 08:41 Dose: 1 cap Hydromorphone HCl (Dilaudid) 1 mg IVP Q4H PRN PRN Reason: Pain, severe (8-10) Last Admin: 09/01/17 14:38 Dose: 1 mg Ceftriaxone Sodium (Rocephin Iv 1 Gm Duplex) 50 mls @ 100 mls/hr IVPB DAILY [facility] Last Admin: 09/01/17 10:00 Dose: 100 mls/hr Vancomycin HCl 1 gm/ Sodium (Chloride) 250 mls @ 166.6 mls/hr IVPB Q12H [facility] Last Admin: 09/01/17 06:52 Dose: 166.6 mls/hr Ondansetron HCl (Zofran Inj) 4 mg IVP Q6H PRN PRN Reason: Nausea/Vomiting Oxycodone HCl (Oxycodone Immediate Release Tab) 10 mg PO Q6 PRN PRN Reason: Pain, moderate (4-7) Last Admin: 08/31/17 15:04 Dose: 10 mg Pantoprazole Sodium (Protonix Inj) 40 mg IVP DAILY [facility] Last Admin: 09/01/17 09:59 Dose: 40 mg Saccharomyces Boulardii (Florastor) 250 mg PO DAILY [facility] Last Admin: 09/01/17 11:24 Dose: 250 mg - Labs Labs: 09/01/17 08:01 09/01/17 08:01 PT 11.2 SECONDS (9.7-12.2) 08/29/17 02:02 INR 1.0 08/29/17 02:02 APTT 33 SECONDS (21-34) 08/29/17 02:02 - Constitutional Appears: Non-toxic, Chronically Ill - Head Exam Head Exam: NORMOCEPHALIC - Eye Exam Eye Exam: PERRL - ENT Exam ENT Exam: Mucous Membranes Dry - Neck Exam Neck Exam: absent: Lymphadenopathy - Respiratory Exam Respiratory Exam: Decreased Breath Sounds - Cardiovascular Exam Cardiovascular Exam: REGULAR RHYTHM - GI/Abdominal Exam GI & Abdominal Exam: Distended, Soft - Rectal Exam Rectal Exam: Deferred - Exam Exam: NORMAL INSPECTION - Extremities Exam Extremities Exam: absent: Normal Inspection, Pedal Edema - Back Exam Back Exam: absent: CVA tenderness (L), CVA tenderness (R) - Neurological Exam Neurological Exam: Alert, Awake, Oriented x3 Assessment and Plan (1) Fracture, tibia and fibula, proximal Status: Acute (2) Type I or II open fracture of proximal end of right tibia and fibula Status: Acute - Assessment and Plan (Free Text) Assessment: afebrile on IV antibiotics external fixators in place for possible OR next week
[2017-09-02] MEDS: oxyCODONE 10 mg Immediate Release Tab PO PRN (00:24)
[2017-09-02] MEDS: HYDROmorphone 1 mg/ml ISec IVP PRN ×2 (02:05→19:07)
--- NOTE | 2017-09-02 06:03 | CP.PCM.PN ---
Addendum entered and electronically signed by Latia Kaur DO 09/02/17 06:06: addendum to PE Right LE with cast and external fixator present on right LE; clean, dry, intact ; Patient able to move toes; sensation intact; capillary refill <2 seconds Original Note: <Latia Kaur - Last Filed: 09/02/17 06:04> Subjective - Date & Time of Evaluation Date of Evaluation: 09/02/17 Time of Evaluation: 06:01 - Subjective Subjective: Progress Note for Dr. Milton Patient seen and examined at bedside. Resident was paged overnight for "rash" that was itchy and bothered the patient. Patient stated he just wanted to know if it was a reaction from the medications that he was taking. Patient denies, fever, chills, nausea, vomiting. Patient asked for more pain medication overnight. Objective - Vital Signs/Intake and Output Vital Signs (last 24 hours): Temp Pulse Resp BP Pulse Ox 98.7 F 58 L 18 122/67 97 09/02/17 00:10 09/02/17 00:10 09/02/17 00:10 09/02/17 00:10 09/02/17 00:10 Intake and Output: 09/01/17 09/02/17 18:59 06:59 Intake Total 580 Output Total 1200 Balance -620 - Medications Medications: Current Medications Acetaminophen (Tylenol 325mg Tab) 975 mg PO Q6 [facility] Last Admin: 09/02/17 00:15 Dose: Not Given Cyclobenzaprine HCl (Flexeril) 5 mg PO Q24H [facility] Last Admin: 09/01/17 21:10 Dose: 5 mg Docusate Sodium (Colace) 100 mg PO BID [facility] Last Admin: 09/01/17 18:34 Dose: 100 mg Enoxaparin Sodium (Lovenox) 40 mg SC DAILY [facility] Last Admin: 09/01/17 10:00 Dose: 40 mg Ergocalciferol (Drisdol 50,000 Intl Units Cap) 1 cap PO Q7D [facility] Last Admin: 09/01/17 08:41 Dose: 1 cap Hydromorphone HCl (Dilaudid) 1 mg IVP Q4H PRN PRN Reason: Pain, severe (8-10) Last Admin: 09/02/17 02:05 Dose: 1 mg Vancomycin HCl 1 gm/ Sodium (Chloride) 250 mls @ 166.6 mls/hr IVPB Q12H [facility] Last Admin: 09/01/17 18:33 Dose: 166.6 mls/hr Ceftriaxone Sodium 1 gm/ (Sodium Chloride) 100 mls @ 100 mls/hr IVPB DAILY [facility] Ondansetron HCl (Zofran Inj) 4 mg IVP Q6H PRN PRN Reason: Nausea/Vomiting Oxycodone HCl (Oxycodone Immediate Release Tab) 10 mg PO Q6 PRN PRN Reason: Pain, moderate (4-7) Last Admin: 09/02/17 00:24 Dose: 10 mg Pantoprazole Sodium (Protonix Inj) 40 mg IVP DAILY [facility] Last Admin: 09/01/17 09:59 Dose: 40 mg Saccharomyces Boulardii (Florastor) 250 mg PO DAILY [facility] Last Admin: 09/01/17 11:24 Dose: 250 mg - Labs Labs: 09/01/17 08:01 09/01/17 08:01 PT 11.2 SECONDS (9.7-12.2) 08/29/17 02:02 INR 1.0 08/29/17 02:02 APTT 33 SECONDS (21-34) 08/29/17 02:02 - Head Exam Head Exam: NORMAL INSPECTION - Eye Exam Eye Exam: EOMI, Normal appearance - ENT Exam ENT Exam: Mucous Membranes Moist - Neck Exam Neck Exam: Full ROM - Respiratory Exam Respiratory Exam: Decreased Breath Sounds, NORMAL BREATHING PATTERN. absent: Accessory Muscle Use - Cardiovascular Exam Cardiovascular Exam: REGULAR RHYTHM, +S1, +S2 - GI/Abdominal Exam GI & Abdominal Exam: Soft. absent: Tenderness - Back Exam Additional comments: small vesicles noted on upper back. patient denies pain - Neurological Exam Neurological Exam: Alert, Awake - Psychiatric Exam Psychiatric exam: Normal Affect, Normal Mood - Skin Skin Exam: Dry, Intact Assessment and Plan - Assessment and Plan (Free Text) Assessment: (1) Fracture, tibia and fibula, proximal Assessment & Plan: * Tibia/Fibula Xray: Multiple comminuted fractures -tibia fibula -tibial plateau intraarticular extension. Medial tibial plateau large fracture fragment has its articular surface diagonally angulated from a right lateral to a inferior medial orientation * Lower extremity CT: Comminuted fracture proximal tibia with extension to lateral tibial plateau, posterior interspinous region, focal depression anterior lateral portion of the plateau of up to 1.8 cm. Comminuted fracture proximal fibula. Moderate pneumo-hemarthrosis, soft tissue edema and emphysema. * Continue Ceftriaxone 1gm q24h * Continue Vancomycin 1gm q12h * Continue Tylenol and/or Dilaudid as needed for pain control * Continue Zofran 4mg IVP q6h prn * Orthopedics consulted, Dr. Troncoso, help appreciated * As per Orthopedics, patient should continue 7-10 days of antibiotics; ID consulted- Dr. Stephenson, help appreciated * Wound gram stain, fungal cx: no growth * Patient will need second in-house operation- scheduled date pending. * ID consulted, Dr. Stephenson, help appreciated * Patient s/p I&D and application of external fixator on right tibia (on 08/29) , POD#4. * Continue IV antibiotics as per ID. * Patient does not have insurance, and therefore will not have placement in rehab. * Awaiting decrease in swelling to schedule next operation. Status: Acute (2) Prophylactic measure Assessment & Plan: DVT: Lovenox 40mg SC daily GI: Protonix 40mg IVP daily Incentive Spirometer OT Vegan diet Status: Acute Latia Kaur DO PGY1 <Sampson Milton H - Last Filed: 09/02/17 14:23> Objective - Vital Signs/Intake and Output Vital Signs (last 24 hours): Temp Pulse Resp BP Pulse Ox 98.6 F 70 20 108/60 96 09/02/17 08:03 09/02/17 08:03 09/02/17 08:03 09/02/17 08:03 09/02/17 08:03 - Medications Medications: Current Medications Acetaminophen (Tylenol 325mg Tab) 975 mg PO Q6 [facility] Last Admin: 09/02/17 12:00 Dose: 975 mg Cyclobenzaprine HCl (Flexeril) 5 mg PO Q24H [facility] Last Admin: 09/01/17 21:10 Dose: 5 mg Docusate Sodium (Colace) 100 mg PO BID [facility] Last Admin: 09/02/17 09:49 Dose: 100 mg Enoxaparin Sodium (Lovenox) 40 mg SC DAILY [facility] Last Admin: 09/02/17 09:49 Dose: 40 mg Ergocalciferol (Drisdol 50,000 Intl Units Cap) 1 cap PO Q7D [facility] Last Admin: 09/01/17 08:41 Dose: 1 cap Hydromorphone HCl (Dilaudid) 1 mg IVP Q4H PRN PRN Reason: Pain, severe (8-10) Last Admin: 09/02/17 02:05 Dose: 1 mg Vancomycin HCl 1 gm/ Sodium (Chloride) 250 mls @ 166.6 mls/hr IVPB Q12H [facility] Last Admin: 09/02/17 06:47 Dose: 166.6 mls/hr Ceftriaxone Sodium 1 gm/ (Sodium Chloride) 100 mls @ 100 mls/hr IVPB DAILY [facility] Last Admin: 09/02/17 09:49 Dose: 100 mls/hr Ondansetron HCl (Zofran Inj) 4 mg IVP Q6H PRN PRN Reason: Nausea/Vomiting Oxycodone HCl (Oxycodone Immediate Release Tab) 10 mg PO Q6 PRN PRN Reason: Pain, moderate (4-7) Last Admin: 09/02/17 00:24 Dose: 10 mg Pantoprazole Sodium (Protonix Inj) 40 mg IVP DAILY [facility] Last Admin: 09/02/17 09:49 Dose: 40 mg Saccharomyces Boulardii (Florastor) 250 mg PO DAILY [facility] Last Admin: 09/02/17 09:49 Dose: 250 mg - Labs Labs: 09/02/17 07:50 09/02/17 07:50 PT 11.2 SECONDS (9.7-12.2) 08/29/17 02:02 INR 1.0 08/29/17 02:02 APTT 33 SECONDS (21-34) 08/29/17 02:02 Attending/Attestation - Attestation I have personally seen and examined this patient.: Yes I have fully participated in the care of the patient.: Yes I have reviewed all pertinent clinical information, including history, physical exam and plan: Yes Notes (Text): Medical attending: Patient was seen and examined by me. He was not in any acute distress when I saw him He asked about the skin over an area over his left scapula/deltoid area and I looked at it has very small non raised lesions. Non pustule. Non painful. At this moment we are continuing IV abx and at some point when his inflmmation is less he will be going to OR again. He is working with PT. thank you Sampson Milton
[2017-09-02 08:05] LABS: BASO # 0.1 K/uL (0.0-0.2); BASO % 0.9 % (0.0-2.0); EOS # 0.1 K/uL (0.0-0.7); HEMATOCRIT 29.2 % (35.0-51.0); LYMPH # 1.3 K/uL (1.0-4.3); LYMPH % 16.5 % (20.0-40.0); MEAN CELL VOLUME 85.1 fL (80.0-94.0); MEAN CORPUSCULAR HEMOGLOBIN 28.8 pg (27.0-31.0); MEAN CORPUSCULAR HGB CONC 33.8 g/dL (33.0-37.0); MEAN PLATELET VOLUME 9.6 fL (7.2-11.7); MONO # 0.8 K/uL (0.0-0.8); MONO % 10.4 % (0.0-10.0); NRBC % 0.1 % (0.0-2.0); RED CELL DISTRIBUTION WIDTH 13.1 % (11.5-14.5); WHITE BLOOD COUNT 7.8 K/uL (4.8-10.8)
[2017-09-02 08:17] LABS: ALKALINE PHOSPHATASE 47 U/L (38-126); ALT/SGPT 37 U/L (21-72); AST/SGOT 31 U/L (17-59); BILIRUBIN,TOTAL 1.4 mg/dL (0.2-1.3); BLOOD UREA NITROGEN 9 mg/dL (9-20); CARBON DIOXIDE 36 mmol/L (22-30); CHLORIDE 98 mmol/L (98-107); GFR AFRICAN-AMERICAN > 60; GLUCOSE,RANDOM 102 mg/dL (75-110); POTASSIUM 4.5 mmol/L (3.6-5.2); SODIUM 137 mmol/L (132-148); TOTAL PROTEIN 5.7 g/dL (6.3-8.3)
[2017-09-02 08:23] LABS: ALB/GLOB RATIO 1.2 (1.0-2.1)
[2017-09-02] MEDS: Enoxaparin 40 mg Syringe SC SCH (09:49)
[2017-09-02] MEDS: Saccharomyces Boulardi 250 mg Cap PO SCH (09:49)
[2017-09-02] MEDS: oxyCODONE 5 mg Immediate Release Tab PO PRN (22:47)
[2017-09-03] MEDS: HYDROmorphone 1 mg/ml ISec IVP PRN ×2 (01:37→20:00)
--- NOTE | 2017-09-03 06:38 | CP.PCM.PN ---
Subjective - Date & Time of Evaluation Date of Evaluation: 09/03/17 Time of Evaluation: 06:37 - Subjective Subjective: Progress note for DR. Milton Patient seen and examined at bedside. No acute events overnight. Patient tolerating pain better than yesterday. Patient denies fever, chills, nausea, vomiting, diarrhea. Objective - Vital Signs/Intake and Output Vital Signs (last 24 hours): Temp Pulse Resp BP Pulse Ox 98.2 F 59 L 20 118/62 96 09/02/17 23:20 09/02/17 23:20 09/02/17 23:20 09/02/17 23:20 09/02/17 23:20 Intake and Output: 09/02/17 09/03/17 18:59 06:59 Intake Total 950 Balance 950 - Medications Medications: Current Medications Acetaminophen (Tylenol 325mg Tab) 975 mg PO Q6 [facility] Last Admin: 09/03/17 06:16 Dose: 975 mg Cyclobenzaprine HCl (Flexeril) 5 mg PO Q24H [facility] Last Admin: 09/02/17 20:03 Dose: 5 mg Docusate Sodium (Colace) 100 mg PO BID [facility] Last Admin: 09/02/17 17:35 Dose: Not Given Enoxaparin Sodium (Lovenox) 40 mg SC DAILY [facility] Last Admin: 09/02/17 09:49 Dose: 40 mg Ergocalciferol (Drisdol 50,000 Intl Units Cap) 1 cap PO Q7D [facility] Last Admin: 09/01/17 08:41 Dose: 1 cap Hydromorphone HCl (Dilaudid) 1 mg IVP Q4H PRN PRN Reason: Pain, severe (8-10) Last Admin: 09/03/17 01:37 Dose: 1 mg Vancomycin HCl 1 gm/ Sodium (Chloride) 250 mls @ 166.6 mls/hr IVPB Q12H [facility] Last Admin: 09/03/17 06:15 Dose: 166.6 mls/hr Ceftriaxone Sodium 1 gm/ (Sodium Chloride) 100 mls @ 100 mls/hr IVPB DAILY [facility] Last Admin: 09/02/17 09:49 Dose: 100 mls/hr Ondansetron HCl (Zofran Inj) 4 mg IVP Q6H PRN PRN Reason: Nausea/Vomiting Oxycodone HCl (Oxycodone Immediate Release Tab) 10 mg PO Q6 PRN PRN Reason: Pain, moderate (4-7) Last Admin: 09/02/17 22:47 Dose: 10 mg Pantoprazole Sodium (Protonix Inj) 40 mg IVP DAILY [facility] Last Admin: 09/02/17 09:49 Dose: 40 mg Saccharomyces Boulardii (Florastor) 250 mg PO DAILY [facility] Last Admin: 09/02/17 09:49 Dose: 250 mg - Labs Labs: 09/02/17 07:50 09/02/17 07:50 PT 11.2 SECONDS (9.7-12.2) 08/29/17 02:02 INR 1.0 08/29/17 02:02 APTT 33 SECONDS (21-34) 08/29/17 02:02 - Constitutional Appears: Non-toxic, No Acute Distress - Head Exam Head Exam: NORMAL INSPECTION - Eye Exam Eye Exam: EOMI, Normal appearance - ENT Exam ENT Exam: Mucous Membranes Moist - Neck Exam Neck Exam: Full ROM - Respiratory Exam Respiratory Exam: NORMAL BREATHING PATTERN. absent: Accessory Muscle Use, Respiratory Distress - Cardiovascular Exam Cardiovascular Exam: REGULAR RHYTHM, +S1, +S2 - GI/Abdominal Exam GI & Abdominal Exam: Soft. absent: Tenderness - Extremities Exam Additional comments: right leg has external fixator in place. capillary refill <2 seconds. bandage dressing in place, no drainage, breakthrough bleeding, c/d/i patient can move toes. leg feels warm to the touch, but not fever. - Psychiatric Exam Psychiatric exam: Normal Affect, Normal Mood - Skin Skin Exam: Normal Color Assessment and Plan - Assessment and Plan (Free Text) Assessment: 1) Fracture, tibia and fibula, proximal Assessment & Plan: * Tibia/Fibula Xray: Multiple comminuted fractures -tibia fibula -tibial plateau intraarticular extension. Medial tibial plateau large fracture fragment has its articular surface diagonally angulated from a right lateral to a inferior medial orientation * Lower extremity CT: Comminuted fracture proximal tibia with extension to lateral tibial plateau, posterior interspinous region, focal depression anterior lateral portion of the plateau of up to 1.8 cm. Comminuted fracture proximal fibula. Moderate pneumo-hemarthrosis, soft tissue edema and emphysema. * Continue Ceftriaxone 1gm q24h * Continue Vancomycin 1gm q12h * Continue Tylenol and/or Dilaudid as needed for pain control * Continue Zofran 4mg IVP q6h prn * Orthopedics consulted, Dr. Troncoso, help appreciated * As per Orthopedics, patient should continue 7-10 days of antibiotics; ID consulted- Dr. Stephenson, help appreciated * Wound gram stain, fungal cx: no growth * Patient will need second in-house operation- scheduled date pending. * ID consulted, Dr. Stephenson, help appreciated * Patient s/p I&D and application of external fixator on right tibia (on 08/29) , POD#4. * Continue IV antibiotics as per ID. * Patient does not have insurance, and therefore will not have placement in rehab. * Awaiting decrease in swelling to schedule next operation. Status: Acute (2) Prophylaxis Assessment & Plan: DVT: Lovenox 40mg SC daily GI: Protonix 40mg IVP daily Incentive Spirometer OT Vegan diet Status: Acute Latia Kaur DO PGY1
[2017-09-03 07:41] LABS: BASO # 0.1 K/uL (0.0-0.2); BASO % 0.9 % (0.0-2.0); EOS # 0.1 K/uL (0.0-0.7); EOS % 1.5 % (0.0-4.0); HEMATOCRIT 30.6 % (35.0-51.0); LYMPH # 1.2 K/uL (1.0-4.3); LYMPH % 14.5 % (20.0-40.0); MEAN CELL VOLUME 85.2 fL (80.0-94.0); MEAN CORPUSCULAR HEMOGLOBIN 28.5 pg (27.0-31.0); MEAN CORPUSCULAR HGB CONC 33.5 g/dL (33.0-37.0); MEAN PLATELET VOLUME 9.8 fL (7.2-11.7); MONO # 0.8 K/uL (0.0-0.8); RED CELL DISTRIBUTION WIDTH 13.1 % (11.5-14.5); WHITE BLOOD COUNT 8.2 K/uL (4.8-10.8)
[2017-09-03 08:06] LABS: ALB/GLOB RATIO 0.9 (1.0-2.1); ALKALINE PHOSPHATASE 44 U/L (38-126); ALT/SGPT 29 U/L (21-72); AST/SGOT 49 U/L (17-59); BILIRUBIN,TOTAL 1.4 mg/dL (0.2-1.3); BLOOD UREA NITROGEN 12 mg/dL (9-20); CALCIUM 8.3 mg/dl (8.6-10.4); CARBON DIOXIDE 32 mmol/L (22-30); CHLORIDE 99 mmol/L (98-107); GFR AFRICAN-AMERICAN > 60; GLUCOSE,RANDOM 94 mg/dL (75-110); POTASSIUM 4.8 mmol/L (3.6-5.2); SODIUM 137 mmol/L (132-148); TOTAL PROTEIN 7.2 g/dL (6.3-8.3)
[2017-09-03] MEDS: Saccharomyces Boulardi 250 mg Cap PO SCH (09:46)
[2017-09-03] MEDS: Enoxaparin 40 mg Syringe SC SCH (09:46)
--- NOTE | 2017-09-03 14:31 | CP.PCM.PN ---
Subjective - Date & Time of Evaluation Date of Evaluation: 09/03/17 Time of Evaluation: 07:00 - Subjective Subjective: no fever or chills iv rx in progress Objective - Vital Signs/Intake and Output Vital Signs (last 24 hours): Temp Pulse Resp BP Pulse Ox 97.9 F 59 L 20 113/68 98 09/03/17 08:56 09/03/17 08:56 09/03/17 08:56 09/03/17 08:56 09/03/17 08:56 Intake and Output: 09/03/17 09/03/17 06:59 18:59 Intake Total 950 Balance 950 - Medications Medications: Current Medications Acetaminophen (Tylenol 325mg Tab) 975 mg PO Q6 [facility] Last Admin: 09/03/17 12:22 Dose: 975 mg Cyclobenzaprine HCl (Flexeril) 5 mg PO Q24H [facility] Last Admin: 09/02/17 20:03 Dose: 5 mg Docusate Sodium (Colace) 100 mg PO BID [facility] Last Admin: 09/03/17 09:46 Dose: 100 mg Enoxaparin Sodium (Lovenox) 40 mg SC DAILY [facility] Last Admin: 09/03/17 09:46 Dose: 40 mg Ergocalciferol (Drisdol 50,000 Intl Units Cap) 1 cap PO Q7D [facility] Last Admin: 09/01/17 08:41 Dose: 1 cap Hydromorphone HCl (Dilaudid) 1 mg IVP Q4H PRN PRN Reason: Pain, severe (8-10) Last Admin: 09/03/17 01:37 Dose: 1 mg Vancomycin HCl 1 gm/ Sodium (Chloride) 250 mls @ 166.6 mls/hr IVPB Q12H [facility] Last Admin: 09/03/17 06:15 Dose: 166.6 mls/hr Ceftriaxone Sodium 1 gm/ (Sodium Chloride) 100 mls @ 100 mls/hr IVPB DAILY [facility] Last Admin: 09/03/17 09:45 Dose: 100 mls/hr Ondansetron HCl (Zofran Inj) 4 mg IVP Q6H PRN PRN Reason: Nausea/Vomiting Oxycodone HCl (Oxycodone Immediate Release Tab) 10 mg PO Q6 PRN PRN Reason: Pain, moderate (4-7) Last Admin: 09/02/17 22:47 Dose: 10 mg Pantoprazole Sodium (Protonix Inj) 40 mg IVP DAILY [facility] Last Admin: 09/03/17 09:46 Dose: 40 mg Saccharomyces Boulardii (Florastor) 250 mg PO DAILY [facility] Last Admin: 09/03/17 09:46 Dose: 250 mg - Labs Labs: 09/03/17 07:22 09/03/17 07:22 PT 11.2 SECONDS (9.7-12.2) 08/29/17 02:02 INR 1.0 08/29/17 02:02 APTT 33 SECONDS (21-34) 08/29/17 02:02 - Constitutional Appears: Non-toxic, Chronically Ill - Head Exam Head Exam: NORMOCEPHALIC - Eye Exam Eye Exam: PERRL - ENT Exam ENT Exam: Mucous Membranes Dry - Neck Exam Neck Exam: absent: Lymphadenopathy - Respiratory Exam Respiratory Exam: Decreased Breath Sounds - Cardiovascular Exam Cardiovascular Exam: REGULAR RHYTHM, +S1, +S2 - GI/Abdominal Exam GI & Abdominal Exam: Distended, Soft - Rectal Exam Rectal Exam: Deferred - Exam Exam: NORMAL INSPECTION Assessment and Plan (1) Fracture, tibia and fibula, proximal Status: Acute (2) Type I or II open fracture of proximal end of right tibia and fibula Status: Acute
[2017-09-03] MEDS: oxyCODONE 5 mg Immediate Release Tab PO PRN (15:42)
[2017-09-04] MEDS: HYDROmorphone 1 mg/ml ISec IVP PRN ×2 (00:47→05:53)
--- NOTE | 2017-09-04 07:01 | CP.PCM.PN ---
<Venessa Urena - Last Filed: 09/04/17 14:12> Subjective - Date & Time of Evaluation Date of Evaluation: 09/04/17 Time of Evaluation: 07:01 - Subjective Subjective: Medicine Progress Note for Dr. Reyna Patient was seen and examined at bedside in no acute distress. Patient reports feeling well and having some pain overnight but medication helped. Patient denies having chest pain, abdominal pain, shortness of breath, nausea, vomiting , fevers, and dizziness. Objective - Vital Signs/Intake and Output Vital Signs (last 24 hours): Temp Pulse Resp BP Pulse Ox 98.1 F 54 L 20 123/71 98 09/03/17 23:00 09/03/17 23:00 09/03/17 23:00 09/03/17 23:00 09/03/17 23:00 - Medications Medications: Current Medications Acetaminophen (Tylenol 325mg Tab) 975 mg PO Q6 [facility] Last Admin: 09/04/17 05:42 Dose: 975 mg Cyclobenzaprine HCl (Flexeril) 5 mg PO Q24H [facility] Last Admin: 09/04/17 00:00 Dose: 5 mg Docusate Sodium (Colace) 100 mg PO BID [facility] Last Admin: 09/03/17 18:28 Dose: 100 mg Enoxaparin Sodium (Lovenox) 40 mg SC DAILY [facility] Last Admin: 09/03/17 09:46 Dose: 40 mg Ergocalciferol (Drisdol 50,000 Intl Units Cap) 1 cap PO Q7D [facility] Last Admin: 09/01/17 08:41 Dose: 1 cap Hydromorphone HCl (Dilaudid) 1 mg IVP Q4H PRN PRN Reason: Pain, severe (8-10) Last Admin: 09/04/17 05:53 Dose: 1 mg Vancomycin HCl 1 gm/ Sodium (Chloride) 250 mls @ 166.6 mls/hr IVPB Q12H [facility] Last Admin: 09/04/17 05:44 Dose: 166.6 mls/hr Ceftriaxone Sodium 1 gm/ (Sodium Chloride) 100 mls @ 100 mls/hr IVPB DAILY [facility] Last Admin: 09/03/17 09:45 Dose: 100 mls/hr Ondansetron HCl (Zofran Inj) 4 mg IVP Q6H PRN PRN Reason: Nausea/Vomiting Oxycodone HCl (Oxycodone Immediate Release Tab) 10 mg PO Q6 PRN PRN Reason: Pain, moderate (4-7) Last Admin: 09/03/17 15:42 Dose: 10 mg Pantoprazole Sodium (Protonix Inj) 40 mg IVP DAILY [facility] Last Admin: 09/03/17 09:46 Dose: 40 mg Saccharomyces Boulardii (Florastor) 250 mg PO DAILY [facility] Last Admin: 09/03/17 09:46 Dose: 250 mg - Labs Labs: 09/03/17 07:22 09/03/17 07:22 PT 11.2 SECONDS (9.7-12.2) 08/29/17 02:02 INR 1.0 08/29/17 02:02 APTT 33 SECONDS (21-34) 08/29/17 02:02 - Additional Findings Additional findings: - Constitutional Appears: No Acute Distress - Head Exam Head Exam: ATRAUMATIC, NORMAL INSPECTION - Eye Exam Eye Exam: EOMI, Normal appearance - ENT Exam ENT Exam: Mucous Membranes Moist - Respiratory Exam Respiratory Exam: Clear to Ausculation Bilateral, NORMAL BREATHING PATTERN. absent: Rales, Rhonchi, Wheezes, Respiratory Distress - Cardiovascular Exam Cardiovascular Exam: REGULAR RHYTHM, +S1, +S2 - GI/Abdominal Exam GI & Abdominal Exam: Soft, Normal Bowel Sounds. absent: Distended, Firm, Guarding, Tenderness - Extremities Exam Additional comments: Right LE: cast and external fixator present on right LE; clean, dry, intact; Patient able to move toes; sensation intact; pulses present; dressing clean, dry , intact - Neurological Exam Neurological Exam: Alert, Awake, Oriented x3 - Psychiatric Exam Psychiatric exam: Normal Affect, Normal Mood - Skin Skin Exam: Dry, Pallor, Warm Assessment and Plan (1) Fracture, tibia and fibula, proximal Status: Acute (2) Prophylactic measure Status: Acute - Assessment and Plan (Free Text) Plan: (1) Fracture, tibia and fibula, proximal Assessment & Plan: * Tibia/Fibula Xray: Multiple comminuted fractures -tibia fibula -tibial plateau intraarticular extension. Medial tibial plateau large fracture fragment has its articular surface diagonally angulated from a right lateral to a inferior medial orientation * Lower extremity CT: Comminuted fracture proximal tibia with extension to lateral tibial plateau, posterior interspinous region, focal depression anterior lateral portion of the plateau of up to 1.8 cm. Comminuted fracture proximal fibula. Moderate pneumo-hemarthrosis, soft tissue edema and emphysema. * Continue Ceftriaxone 1gm q24h * HOLD Vancomycin 1gm q12h * Vanco trough 28.3 (09/04) * F/u vanco random level in the AM * Continue Tylenol and/or Dilaudid as needed for pain control * Continue Zofran 4mg IVP q6h prn * Orthopedics consulted, Dr. Troncoso, help appreciated * As per Orthopedics, patient should continue 7-10 days of antibiotics; ID consulted- Dr. Stephenson, help appreciated * Wound gram stain, fungal cx: no growth * Patient will need second in-house operation- scheduled date pending. * ID consulted, Dr. Stephesnon, help appreciated * Patient s/p I&D and application of external fixator on right tibia (on 08/29) , POD#6. * Continue IV antibiotics as per ID. * Patient does not have insurance, and therefore will not have placement in rehab. * Awaiting decrease in swelling to schedule next operation. * Continue PT/OT (2) Prophylactic measure Assessment & Plan: DVT: Lovenox 40mg SC daily GI: Protonix 40mg IVP daily Incentive Spirometer OT Vegan diet <Guanako Reyna - Last Filed: 09/04/17 17:12> Objective - Vital Signs/Intake and Output Vital Signs (last 24 hours): Temp Pulse Resp BP Pulse Ox 97.5 F L 71 20 106/62 98 09/04/17 12:18 09/04/17 13:16 09/04/17 08:50 09/04/17 08:50 09/04/17 13:16 - Medications Medications: Current Medications Acetaminophen (Tylenol 325mg Tab) 975 mg PO Q6 [facility] Last Admin: 09/04/17 12:18 Dose: 975 mg Cyclobenzaprine HCl (Flexeril) 5 mg PO Q24H [facility] Last Admin: 09/04/17 00:00 Dose: 5 mg Docusate Sodium (Colace) 100 mg PO BID [facility] Last Admin: 09/04/17 09:52 Dose: 100 mg Enoxaparin Sodium (Lovenox) 40 mg SC DAILY [facility] Last Admin: 09/04/17 09:52 Dose: 40 mg Ergocalciferol (Drisdol 50,000 Intl Units Cap) 1 cap PO Q7D [facility] Last Admin: 09/01/17 08:41 Dose: 1 cap Hydromorphone HCl (Dilaudid) 1 mg IVP Q4H PRN PRN Reason: Pain, severe (8-10) Last Admin: 09/04/17 05:53 Dose: 1 mg Vancomycin HCl 1 gm/ Sodium (Chloride) 250 mls @ 166.6 mls/hr IVPB Q12H [facility] Last Admin: 09/04/17 05:44 Dose: 166.6 mls/hr Ceftriaxone Sodium 1 gm/ (Sodium Chloride) 100 mls @ 100 mls/hr IVPB DAILY [facility] Last Admin: 09/04/17 09:53 Dose: 100 mls/hr Ondansetron HCl (Zofran Inj) 4 mg IVP Q6H PRN PRN Reason: Nausea/Vomiting Oxycodone HCl (Oxycodone Immediate Release Tab) 10 mg PO Q6 PRN PRN Reason: Pain, moderate (4-7) Last Admin: 09/03/17 15:42 Dose: 10 mg Pantoprazole Sodium (Protonix Inj) 40 mg IVP DAILY [facility] Last Admin: 09/04/17 09:52 Dose: 40 mg Saccharomyces Boulardii (Florastor) 250 mg PO DAILY [facility] Last Admin: 09/04/17 09:52 Dose: 250 mg - Labs Labs: 09/04/17 07:35 09/04/17 07:35 PT 11.2 SECONDS (9.7-12.2) 08/29/17 02:02 INR 1.0 08/29/17 02:02 APTT 33 SECONDS (21-34) 08/29/17 02:02 Attending/Attestation - Attestation I have personally seen and examined this patient.: Yes I have fully participated in the care of the patient.: Yes I have reviewed all pertinent clinical information, including history, physical exam and plan: Yes Notes (Text): Patient was seen and examined d/w the resident I agree with the resident's documentation 09/04/17 17:11
[2017-09-04 07:50] LABS: BASO # 0.1 K/uL (0.0-0.2); BASO % 0.8 % (0.0-2.0); EOS # 0.1 K/uL (0.0-0.7); EOS % 1.4 % (0.0-4.0); HEMATOCRIT 29.4 % (35.0-51.0); LYMPH # 1.1 K/uL (1.0-4.3); LYMPH % 11.8 % (20.0-40.0); MEAN CELL VOLUME 84.7 fL (80.0-94.0); MEAN CORPUSCULAR HEMOGLOBIN 29.3 pg (27.0-31.0); MEAN CORPUSCULAR HGB CONC 34.6 g/dL (33.0-37.0); MEAN PLATELET VOLUME 8.9 fL (7.2-11.7); MONO # 0.7 K/uL (0.0-0.8); MONO % 8.2 % (0.0-10.0); RED CELL DISTRIBUTION WIDTH 12.9 % (11.5-14.5); WHITE BLOOD COUNT 8.9 K/uL (4.8-10.8)
[2017-09-04 08:42] LABS: ALB/GLOB RATIO 1.2 (1.0-2.1); ALKALINE PHOSPHATASE 83 U/L (38-126); ALT/SGPT 45 U/L (21-72); AST/SGOT 57 U/L (17-59); BLOOD UREA NITROGEN 15 mg/dL (9-20); CALCIUM 8.2 mg/dl (8.6-10.4); CARBON DIOXIDE 35 mmol/L (22-30); CHLORIDE 97 mmol/L (98-107); GFR AFRICAN-AMERICAN > 60; GLUCOSE,RANDOM 99 mg/dL (75-110); POTASSIUM 4.8 mmol/L (3.6-5.2); SODIUM 138 mmol/L (132-148); TOTAL PROTEIN 6.2 g/dL (6.3-8.3)
--- NOTE | 2017-09-04 08:51 | CP.PCM.PN ---
Subjective - Date & Time of Evaluation Date of Evaluation: 09/04/17 Time of Evaluation: 08:47 - Subjective Subjective: Patient states that tylenol and oxycodone are not helping pain. He says pain is worse at night. Denies CP/SOB/dizziness. No new complaints. Objective - Vital Signs/Intake and Output Vital Signs (last 24 hours): Temp Pulse Resp BP Pulse Ox 98.1 F 54 L 20 123/71 98 09/03/17 23:00 09/03/17 23:00 09/03/17 23:00 09/03/17 23:00 09/03/17 23:00 - Medications Medications: Current Medications Acetaminophen (Tylenol 325mg Tab) 975 mg PO Q6 [facility] Last Admin: 09/04/17 05:42 Dose: 975 mg Cyclobenzaprine HCl (Flexeril) 5 mg PO Q24H [facility] Last Admin: 09/04/17 00:00 Dose: 5 mg Docusate Sodium (Colace) 100 mg PO BID [facility] Last Admin: 09/03/17 18:28 Dose: 100 mg Enoxaparin Sodium (Lovenox) 40 mg SC DAILY [facility] Last Admin: 09/03/17 09:46 Dose: 40 mg Ergocalciferol (Drisdol 50,000 Intl Units Cap) 1 cap PO Q7D [facility] Last Admin: 09/01/17 08:41 Dose: 1 cap Hydromorphone HCl (Dilaudid) 1 mg IVP Q4H PRN PRN Reason: Pain, severe (8-10) Last Admin: 09/04/17 05:53 Dose: 1 mg Vancomycin HCl 1 gm/ Sodium (Chloride) 250 mls @ 166.6 mls/hr IVPB Q12H [facility] Last Admin: 09/04/17 05:44 Dose: 166.6 mls/hr Ceftriaxone Sodium 1 gm/ (Sodium Chloride) 100 mls @ 100 mls/hr IVPB DAILY [facility] Last Admin: 09/03/17 09:45 Dose: 100 mls/hr Ondansetron HCl (Zofran Inj) 4 mg IVP Q6H PRN PRN Reason: Nausea/Vomiting Oxycodone HCl (Oxycodone Immediate Release Tab) 10 mg PO Q6 PRN PRN Reason: Pain, moderate (4-7) Last Admin: 09/03/17 15:42 Dose: 10 mg Pantoprazole Sodium (Protonix Inj) 40 mg IVP DAILY [facility] Last Admin: 09/03/17 09:46 Dose: 40 mg Saccharomyces Boulardii (Florastor) 250 mg PO DAILY [facility] Last Admin: 09/03/17 09:46 Dose: 250 mg - Labs Labs: 09/04/17 07:35 09/04/17 07:35 PT 11.2 SECONDS (9.7-12.2) 08/29/17 02:02 INR 1.0 08/29/17 02:02 APTT 33 SECONDS (21-34) 08/29/17 02:02 - Extremities Exam Additional comments: RLE: dressing changed. Incisions dry, open wound healing well, no drainage, no erythema, medial wounds healing well, swelling improving. calves soft NT ne ghomans +ROM ankle/toes, sensation intact, +DP/PT pulses Assessment and Plan (1) Type I or II open fracture of proximal end of right tibia and fibula Assessment & Plan: POD#6 s/p I&D/ex fix application -IV abx -swelling improving, d/w Dr. Troncoso regarding scheduling of surgery -cont VTE proph -cont PT/OT at this time -d/w Dr. Troncoso Status: Acute (2) Open fracture of right tibial plateau Status: Acute
[2017-09-04] MEDS: Enoxaparin 40 mg Syringe SC SCH (09:52)
[2017-09-04] MEDS: Saccharomyces Boulardi 250 mg Cap PO SCH (09:52)
--- NOTE | 2017-09-05 06:55 | CP.PCM.PN ---
Subjective - Date & Time of Evaluation Date of Evaluation: 09/05/17 Time of Evaluation: 06:55 - Subjective Subjective: Medicine Progress Note for Dr. Reyna Patient was seen and examined at bedside in no acute distress. Patient reports having pain over night which affected his sleep, but he tried taking less pain medications. He reports the pain is currently manageable without medication. Patient denies having chest pain, abdominal pain, nausea, vomiting, and fevers. Objective - Vital Signs/Intake and Output Vital Signs (last 24 hours): Temp Pulse Resp BP Pulse Ox 97.6 F 64 18 116/53 L 99 09/05/17 00:05 09/05/17 00:05 09/05/17 00:05 09/05/17 00:05 09/05/17 00:05 Intake and Output: 09/04/17 09/05/17 18:59 06:59 Intake Total 700 Balance 700 - Medications Medications: Current Medications Acetaminophen (Tylenol 325mg Tab) 975 mg PO Q6 [facility] Last Admin: 09/05/17 06:22 Dose: 975 mg Cyclobenzaprine HCl (Flexeril) 5 mg PO Q24H [facility] Last Admin: 09/04/17 21:58 Dose: 5 mg Docusate Sodium (Colace) 100 mg PO BID [facility] Last Admin: 09/04/17 18:52 Dose: Not Given Enoxaparin Sodium (Lovenox) 40 mg SC DAILY [facility] Last Admin: 09/04/17 09:52 Dose: 40 mg Ergocalciferol (Drisdol 50,000 Intl Units Cap) 1 cap PO Q7D [facility] Last Admin: 09/01/17 08:41 Dose: 1 cap Hydromorphone HCl (Dilaudid) 1 mg IVP Q4H PRN PRN Reason: Pain, severe (8-10) Last Admin: 09/04/17 05:53 Dose: 1 mg Vancomycin HCl 1 gm/ Sodium (Chloride) 250 mls @ 166.6 mls/hr IVPB Q12H [facility] Last Admin: 09/04/17 05:44 Dose: 166.6 mls/hr Ceftriaxone Sodium 1 gm/ (Sodium Chloride) 100 mls @ 100 mls/hr IVPB DAILY [facility] Last Admin: 09/04/17 09:53 Dose: 100 mls/hr Ondansetron HCl (Zofran Inj) 4 mg IVP Q6H PRN PRN Reason: Nausea/Vomiting Oxycodone HCl (Oxycodone Immediate Release Tab) 10 mg PO Q6 PRN PRN Reason: Pain, moderate (4-7) Last Admin: 09/03/17 15:42 Dose: 10 mg Pantoprazole Sodium (Protonix Inj) 40 mg IVP DAILY [facility] Last Admin: 09/04/17 09:52 Dose: 40 mg Saccharomyces Boulardii (Florastor) 250 mg PO DAILY [facility] Last Admin: 09/04/17 09:52 Dose: 250 mg - Labs Labs: 09/04/17 07:35 09/04/17 07:35 PT 11.2 SECONDS (9.7-12.2) 08/29/17 02:02 INR 1.0 08/29/17 02:02 APTT 33 SECONDS (21-34) 08/29/17 02:02 - Additional Findings Additional findings: - Constitutional Appears: No Acute Distress - Head Exam Head Exam: ATRAUMATIC, NORMAL INSPECTION - Eye Exam Eye Exam: EOMI, Normal appearance - ENT Exam ENT Exam: Mucous Membranes Moist - Respiratory Exam Respiratory Exam: Clear to Ausculation Bilateral, NORMAL BREATHING PATTERN. absent: Rales, Rhonchi, Wheezes, Respiratory Distress - Cardiovascular Exam Cardiovascular Exam: REGULAR RHYTHM, +S1, +S2 - GI/Abdominal Exam GI & Abdominal Exam: Soft, Normal Bowel Sounds. absent: Distended, Firm, Guarding, Tenderness - Extremities Exam Additional comments: Right LE: cast and external fixator present on right LE; Patient able to move toes; sensation intact; pulses present; dressing has minimal serosanguinous drainage, dry, intact - Neurological Exam Neurological Exam: Alert, Awake, Oriented x3 - Psychiatric Exam Psychiatric exam: Normal Affect, Normal Mood - Skin Skin Exam: Dry, Pallor, Warm Assessment and Plan (1) Fracture, tibia and fibula, proximal Status: Acute (2) Prophylactic measure Status: Acute - Assessment and Plan (Free Text) Plan: (1) Fracture, tibia and fibula, proximal Assessment & Plan: * Tibia/Fibula Xray: Multiple comminuted fractures -tibia fibula -tibial plateau intraarticular extension. Medial tibial plateau large fracture fragment has its articular surface diagonally angulated from a right lateral to a inferior medial orientation * Lower extremity CT: Comminuted fracture proximal tibia with extension to lateral tibial plateau, posterior interspinous region, focal depression anterior lateral portion of the plateau of up to 1.8 cm. Comminuted fracture proximal fibula. Moderate pneumo-hemarthrosis, soft tissue edema and emphysema. * Continue Ceftriaxone 1gm q24h * HOLD Vancomycin 1gm q12h * Vanco trough 28.3 (09/04)--> Vanco held on 09/04 * Vanco random level: <5.00 * Continue Tylenol and/or Dilaudid as needed for pain control * Continue Zofran 4mg IVP q6h prn * Orthopedics consulted, Dr. Troncoso, help appreciated * As per Orthopedics, patient should continue 7-10 days of antibiotics; ID consulted- Dr. Stephenson, help appreciated * Wound gram stain, fungal cx: no growth * Patient will need second in-house operation- scheduled date pending. * ID consulted, Dr. Stephenson, help appreciated * Patient s/p I&D and application of external fixator on right tibia (on 08/29) , POD#6. * Continue IV antibiotics as per ID. * Patient does not have insurance, and therefore will not have placement in rehab. * Awaiting decrease in swelling to schedule next operation. * Continue PT/OT (2) Prophylactic measure Assessment & Plan: DVT: Lovenox 40mg SC daily GI: Protonix 40mg IVP daily Incentive Spirometer OT Vegan diet
[2017-09-05 07:53] VITALS: RESP 20
[2017-09-05 08:37] LABS: BASO # 0.1 K/uL (0.0-0.2); BASO % 0.9 % (0.0-2.0); EOS # 0.1 K/uL (0.0-0.7); EOS % 1.2 % (0.0-4.0); HEMATOCRIT 30.8 % (35.0-51.0); LYMPH # 1.1 K/uL (1.0-4.3); MEAN CELL VOLUME 85.6 fL (80.0-94.0); MEAN CORPUSCULAR HEMOGLOBIN 28.1 pg (27.0-31.0); MEAN CORPUSCULAR HGB CONC 32.9 g/dL (33.0-37.0); MEAN PLATELET VOLUME 9.3 fL (7.2-11.7); MONO # 0.6 K/uL (0.0-0.8); MONO % 7.7 % (0.0-10.0); RED CELL DISTRIBUTION WIDTH 13.1 % (11.5-14.5); WHITE BLOOD COUNT 8.2 K/uL (4.8-10.8)
[2017-09-05 08:41] LABS: BILIRUBIN,TOTAL 1.2 mg/dL (0.2-1.3); CALCIUM 8.2 mg/dl (8.6-10.4); GFR AFRICAN-AMERICAN > 60; GLUCOSE,RANDOM 99 mg/dL (75-110)
[2017-09-05 08:42] LABS: ALB/GLOB RATIO 1.1 (1.0-2.1); ALKALINE PHOSPHATASE 68 U/L (38-126); ALT/SGPT 50 U/L (21-72); AST/SGOT 60 U/L (17-59); BLOOD UREA NITROGEN 14 mg/dL (9-20); CARBON DIOXIDE 34 mmol/L (22-30); CHLORIDE 100 mmol/L (98-107); POTASSIUM 4.7 mmol/L (3.6-5.2); SODIUM 139 mmol/L (132-148)
[2017-09-05] MEDS: Saccharomyces Boulardi 250 mg Cap PO SCH (10:04)
[2017-09-05] MEDS: Enoxaparin 40 mg Syringe SC SCH (10:04)
--- NOTE | 2017-09-05 11:30 | RAD ---
PROCEDURE: Radiographs of the right tibia and fibula. HISTORY: follow up fracture COMPARISON: 08/29/2017 pre and post reduction studies TECHNIQUE: Four views FINDINGS: BONES: Comminuted fractures tibial metaphyseal to epiphyseal involvement. A 4 to 12 mm diastases of the fractured ends - distal tibial fracture fragment noted and similar. No angulation deformity of the tibial plateau as was initially present on the pre reduction study. No tibial plateau depression. Overall alignment of the fracture fragments otherwise unremarkable Comminuted fibular head fracture -similar with post and pre reduction JOINT SPACES: Unremarkable. Joint effusion with air -consistent with recent fracture OTHER FINDINGS: External fixation device in place as before -distal femur and proximal tibial fixation sites IMPRESSION: Comminuted fractures -tibia and fibula. Tibial fracture with intra-articular extension as before Tibial fracture ends are as detailed above. No angulated fracture fragments appreciated as noted on the pre reduction study. No tibial plateau depression. Otherwise anatomical alignment with unremarkable.
--- NOTE | 2017-09-05 11:32 | RAD ---
PROCEDURE: Right Knee Radiographs. HISTORY: follow up COMPARISON: None. FINDINGS: BONES: Comminuted fractures tibial metaphyseal to epiphyseal involvement. A 4 to 12 mm diastases of the fractured ends - distal tibial fracture fragment noted and similar. No angulation deformity of the tibial plateau as was initially present on the pre reduction study. No tibial plateau depression. Overall alignment of the fracture fragments otherwise unremarkable Comminuted fibular head fracture -similar with post and pre reduction JOINTS: Probable mild osteoarthritis minimal- medial tibial spine spurring. JOINT EFFUSION: Present with air . OTHER FINDINGS: External fixation device distal femur and tibia IMPRESSION: Comminuted fractures -tibia and fibula. Tibial fracture with intra-articular extension as before Tibial fracture ends are as detailed above. No angulated fracture fragments appreciated as noted on the pre reduction study. No significant appearing tibial plateau depression. Otherwise anatomical alignment with unremarkable.
--- NOTE | 2017-09-05 12:09 | CP.PCM.PN ---
Subjective - Date & Time of Evaluation Date of Evaluation: 09/05/17 Time of Evaluation: 13:27 - Subjective Subjective: Patient states pain is controlled. No new complaints. Objective - Vital Signs/Intake and Output Vital Signs (last 24 hours): Temp Pulse Resp BP Pulse Ox 97.4 F L 64 20 118/74 97 09/05/17 07:52 09/05/17 07:52 09/05/17 07:52 09/05/17 07:52 09/05/17 07:52 Intake and Output: 09/05/17 09/05/17 06:59 18:59 Intake Total 700 Balance 700 - Medications Medications: Current Medications Acetaminophen (Tylenol 325mg Tab) 975 mg PO Q6 [facility] Last Admin: 09/05/17 06:22 Dose: 975 mg Cyclobenzaprine HCl (Flexeril) 5 mg PO Q24H [facility] Last Admin: 09/04/17 21:58 Dose: 5 mg Docusate Sodium (Colace) 100 mg PO BID [facility] Last Admin: 09/05/17 10:04 Dose: 100 mg Enoxaparin Sodium (Lovenox) 40 mg SC DAILY [facility] Last Admin: 09/05/17 10:04 Dose: 40 mg Ergocalciferol (Drisdol 50,000 Intl Units Cap) 1 cap PO Q7D [facility] Last Admin: 09/01/17 08:41 Dose: 1 cap Hydromorphone HCl (Dilaudid) 1 mg IVP Q4H PRN PRN Reason: Pain, severe (8-10) Last Admin: 09/04/17 05:53 Dose: 1 mg Vancomycin HCl 1 gm/ Sodium (Chloride) 250 mls @ 166.6 mls/hr IVPB Q12H [facility] Last Admin: 09/04/17 05:44 Dose: 166.6 mls/hr Ceftriaxone Sodium 1 gm/ (Sodium Chloride) 100 mls @ 100 mls/hr IVPB DAILY [facility] Last Admin: 09/05/17 10:55 Dose: 100 mls/hr Ondansetron HCl (Zofran Inj) 4 mg IVP Q6H PRN PRN Reason: Nausea/Vomiting Oxycodone HCl (Oxycodone Immediate Release Tab) 10 mg PO Q6 PRN PRN Reason: Pain, moderate (4-7) Last Admin: 09/03/17 15:42 Dose: 10 mg Pantoprazole Sodium (Protonix Inj) 40 mg IVP DAILY [facility] Last Admin: 09/05/17 10:07 Dose: 40 mg Saccharomyces Boulardii (Florastor) 250 mg PO DAILY [facility] Last Admin: 09/05/17 10:04 Dose: 250 mg - Labs Labs: 09/05/17 08:09 09/05/17 08:09 PT 11.2 SECONDS (9.7-12.2) 08/29/17 02:02 INR 1.0 08/29/17 02:02 APTT 33 SECONDS (21-34) 08/29/17 02:02 - Extremities Exam Additional comments: RLE+ROM ankle/toes, sensation intact, +DP/PT pulses, calves soft NT neg homans. Assessment and Plan (1) Type I or II open fracture of proximal end of right tibia and fibula Assessment & Plan: per Dr. Troncoso, OR next week continue PO antibiotics at home NWB crutches/walker pin care with hydrogen peroxide, dressing changes q2-3 days until dry ortho stable for d/c home outpatient surgery to be scheduled next week, office will contact patient continue vit D3 2000 IU PO daily at home Status: Acute (2) Open fracture of right tibial plateau Status: Acute
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
[2017-09-06 01:11] VITALS: TEMP 98.5
[2017-09-06 07:55] VITALS: BP 120/73; PULSE 77; O2SAT 97
[2017-09-06 08:35] LABS: BASO # 0.1 K/uL (0.0-0.2); BASO % 0.9 % (0.0-2.0); EOS # 0.1 K/uL (0.0-0.7); HEMATOCRIT 31.5 % (35.0-51.0); LYMPH # 1.4 K/uL (1.0-4.3); LYMPH % 14.1 % (20.0-40.0); MEAN CELL VOLUME 84.5 fL (80.0-94.0); MEAN CORPUSCULAR HEMOGLOBIN 28.2 pg (27.0-31.0); MEAN CORPUSCULAR HGB CONC 33.4 g/dL (33.0-37.0); MEAN PLATELET VOLUME 8.6 fL (7.2-11.7); MONO # 0.8 K/uL (0.0-0.8); MONO % 8.1 % (0.0-10.0); RED CELL DISTRIBUTION WIDTH 13.1 % (11.5-14.5); WHITE BLOOD COUNT 10.2 K/uL (4.8-10.8)
[2017-09-06 09:00] LABS: ALB/GLOB RATIO 0.9 (1.0-2.1); ALKALINE PHOSPHATASE 74 U/L (38-126); ALT/SGPT 65 U/L (21-72); AST/SGOT 43 U/L (17-59); BLOOD UREA NITROGEN 15 mg/dL (9-20); CALCIUM 8.8 mg/dl (8.6-10.4); CARBON DIOXIDE 34 mmol/L (22-30); CHLORIDE 100 mmol/L (98-107); GFR AFRICAN-AMERICAN > 60; GLUCOSE,RANDOM 105 mg/dL (75-110); POTASSIUM 4.7 mmol/L (3.6-5.2); SODIUM 141 mmol/L (132-148)
[2017-09-06] MEDS: Saccharomyces Boulardi 250 mg Cap PO SCH (09:39)
[2017-09-06] MEDS: Enoxaparin 40 mg Syringe SC SCH (09:40)
[2017-09-06] MEDS ORDERED: Amoxicillin-Clav 875-125 mg Tab PO ONE (10:00)
[2017-09-06] MEDS ORDERED: Sodium Chloride 0.9% 1,000 ML IV ONE (10:34)
--- NOTE | 2017-09-06 12:57 | CP.PCM.PN ---
Subjective - Date & Time of Evaluation Date of Evaluation: 09/06/17 Time of Evaluation: 12:54 - Subjective Subjective: Patient states pain is controlled. Had vasovagal episode today with PT. Objective - Vital Signs/Intake and Output Vital Signs (last 24 hours): Temp Pulse Resp BP Pulse Ox 98.5 F 77 20 120/73 97 09/06/17 07:54 09/06/17 07:54 09/06/17 07:54 09/06/17 07:54 09/06/17 07:54 Intake and Output: 09/06/17 09/06/17 06:59 18:59 Intake Total 640 Balance 640 - Medications Medications: Current Medications Acetaminophen (Tylenol 325mg Tab) 975 mg PO Q6 [facility] Last Admin: 09/06/17 06:00 Dose: Not Given Cyclobenzaprine HCl (Flexeril) 5 mg PO Q24H [facility] Last Admin: 09/05/17 21:42 Dose: 5 mg Docusate Sodium (Colace) 100 mg PO BID [facility] Last Admin: 09/06/17 09:39 Dose: Not Given Enoxaparin Sodium (Lovenox) 40 mg SC DAILY [facility] Last Admin: 09/06/17 09:40 Dose: 40 mg Ergocalciferol (Drisdol 50,000 Intl Units Cap) 1 cap PO Q7D [facility] Last Admin: 09/01/17 08:41 Dose: 1 cap Hydromorphone HCl (Dilaudid) 1 mg IVP Q4H PRN PRN Reason: Pain, severe (8-10) Last Admin: 09/04/17 05:53 Dose: 1 mg Vancomycin HCl 1 gm/ Sodium (Chloride) 250 mls @ 166.6 mls/hr IVPB Q12H [facility] Last Admin: 09/04/17 05:44 Dose: 166.6 mls/hr Ondansetron HCl (Zofran Inj) 4 mg IVP Q6H PRN PRN Reason: Nausea/Vomiting Oxycodone HCl (Oxycodone Immediate Release Tab) 10 mg PO Q6 PRN PRN Reason: Pain, moderate (4-7) Last Admin: 09/03/17 15:42 Dose: 10 mg Pantoprazole Sodium (Protonix Inj) 40 mg IVP DAILY [facility] Last Admin: 09/06/17 09:44 Dose: Not Given Saccharomyces Boulardii (Florastor) 250 mg PO DAILY [facility] Last Admin: 09/06/17 09:39 Dose: 250 mg - Labs Labs: 09/06/17 08:12 09/06/17 08:12 PT 11.2 SECONDS (9.7-12.2) 08/29/17 02:02 INR 1.0 08/29/17 02:02 APTT 33 SECONDS (21-34) 08/29/17 02:02 - Extremities Exam Additional comments: RLE: dressing changed. distal femoral pin scant drainage, rest dry. No erythema. Open site healing well. +ROm ankle/toes, sensation intact, +DP/PT pulses calves soft NT neg homans Assessment and Plan (1) Type I or II open fracture of proximal end of right tibia and fibula Assessment & Plan: d/c home plan return for removal of exfix/ORIF if patient consents Advised patient of risks/benefits/alternatives to ORIF, and that ORIF is recommended treatment for best potential outcomes, risk of DJD Patient states he will think about surgery f/u in office within 1 week, call for appointment d/w Dr. ca, agrees with above cont PO axb Status: Acute (2) Open fracture of right tibial plateau Status: Acute
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
== END 2017-09-06 17:42 | disposition home or self-care (01) | DRG 219 ==
LOC: C.ER 01:29 → C.9E 04:48 → C.5S 05:58
PROVIDERS: ADMIT Internal Medicine; ATTEND Internal Medicine
PROC: 0QHG35Z Insertion of External Fixation Device into Right Tibia, Percutaneous Approach (ICD-10-PCS; principal; 2017-08-29 12:00)
DX: S82.101B Unspecified fracture of upper end of right tibia, initial encounter for open fracture type I or II (principal); V13.0XXA Pedal cycle driver injured in collision with car, pick-up truck or van in nontraffic accident, initial encounter; Y92.410 Unspecified street and highway as the place of occurrence of the external cause; Y93.55 Activity, bike riding